=== PATIENT | female | born 1930 | race Caucasian/White ===

== ENCOUNTER 2016-09-07 14:40 | Emergency (ER) | payer OTHER, MEDICARE ==
--- NOTE | 2016-09-07 14:42 | PDOC ---
History of Present Illness - General History Source: Patient, Old Records, Primary Care Provider Exam Limitations: No Limitations - History of Present Illness Initial Comments: 09/07/16 14:49 The patient is a 86 year old female with a significant past medical history of AFIB, anemia, hypertension, hypercholesterolemia and rheumatoid arthritis who presents from [facility] emergency department today for further evaluation of diarrhea for 2 days. The patient went to her PMDs office today and was sent to the ED for further evaluation. The patient denies any nausea, vomiting, neck pain, back pain, and chest pain. The patient notes some shortness of breath when walking across the room. She notes she has an appointment with her shirt creaser tomorrow. PCP: Dr. Marquez [phone] <Kun New - Last Filed: 09/07/16 16:02> <Deniz Ly - Last Filed: 09/07/16 17:24> - General Chief Complaint: Weakness Stated Complaint: DEHYDRATION Time Seen by Provider: 09/07/16 14:41 Past History <Kun New - Last Filed: 09/07/16 16:02> - Past Medical History Anemia: Yes Asthma: No Cancer: No Cardiac Disorders: Yes (POSSIBLE A-FIB) CVA: No COPD: No CHF: No Dementia: No Diabetes: No GI Disorders: Yes (upper gi bleed 09) Disorders: No HTN: Yes Hypercholesterolemia: Yes Liver Disease: No Seizures: No Thyroid Disease: No - Surgical History Abdominal Surgery: No Appendectomy: Yes Cardiac Surgery: No Cholecystectomy: No Lung Surgery: No Neurologic Surgery: No Orthopedic Surgery: No - Immunization History Td Vaccination: Yes Immunization Up to Date: (THINKS 2 YEARS) - Psycho/Social/Smoking Cessation Hx Anxiety: No Suicidal Ideation: No Smoking Status: No Smoking History: Never smoked Have you smoked in the past 12 months: No Number of Cigarettes Smoked Daily: 0 If you are a former smoker, when did you quit?: 30 years ago 'Breaking Loose' booklet given: 11/26/11 Hx Alcohol Use: No Drug/Substance Use Hx: No Substance Use Type: None Hx Substance Use Treatment: No <Deniz Ly - Last Filed: 09/07/16 17:24> - Past Medical History Allergies/Adverse Reactions: Allergies Allergy/AdvReac Type Severity Reaction Status Date / Time No Known Allergies Allergy Verified 07/28/14 19:24 Home Medications: Ambulatory Orders Atenolol/Chlorthalidone [Tenoretic 100/25 Tablet] 1 each PO DAILY 10/25/13 Calcium (Oyster Shell) [Os-Subhash 500MG -] 500 mg PO DAILY 10/25/13 Cholecalciferol (Vitamin D3) [Vitamin D3] 5,000 unit PO DAILY 10/25/13 Folic Acid - 1 mg PO DAILY 10/25/13 Methotrexate [Mexate -] 20 mg PO Q7D 10/25/13 Pantoprazole Sodium [Protonix] 40 mg PO DAILY 10/25/13 Potassium Chloride [K-Dur] 20 meq PO BID 10/25/13 Simvastatin [Zocor -] 20 mg PO HS 10/25/13 Warfarin Na [Coumadin] 5 mg PO DAILY 10/25/13 Acetaminophen [Tylenol .Regular Strength -] 650 mg PO Q6H PRN #0 tablet Warfarin Na [Coumadin] 2.5 mg PO DAILY 07/28/14 Review of Systems - Review of Systems Able to Perform ROS?: Yes Constitutional: No: Fever, Loss of Appetite, Night Sweats Respiratory: Yes: Symptoms reported, See HPI, SOB with Exertion. No: Cough, Orthopnea, Wheezing, Productive cough Cardiac (ROS): No: Chest Pain, Syncope ABD/GI: Yes: Symptoms Reported, See HPI, Diarrhea. No: Nausea, Vomiting : No: Dysuria, Hematuria Musculoskeletal: No: Back Pain, Neck Pain Neurological: No: Headache Psychiatric: No: Depression Endocrine: No: Change in Weight All Other Systems: Reviewed and Negative <Kun New - Last Filed: 09/07/16 16:02> *Physical Exam - Physical Exam General Appearance: Yes: Appropriately Dressed. No: Intoxicated HEENT: positive: EOMI, TMII, Other (dry lips). negative: Photophobia, Rhinorrhea Neck: negative: Tender, Decreased range of motion, Lymphadenopathy (R), Lymphadenopathy (L) Respiratory/Chest: positive: Lungs Clear, Normal Breath Sounds. negative: Chest Tender, Respiratory Distress, Accessory Muscle Use, Decreased Breath Sounds, Crackles, Rales, Rhonchi, Stridor, Wheezing Cardiovascular: positive: Systolic Murmur (3/6 Ejection), Irregularly Irregular. negative: Edema, JVD, Diastolic Murmur Vascular Pulses: Femoral (R): 2+, Femoral (L): 2+, Carotid (R): 2+, Carotid (L) : 2+, Dorsalis-Pedis (R): 2+, Doralis-Pedis (L): 2+ Gastrointestinal/Abdominal: positive: Normal Bowel Sounds, Soft. negative: Tender, Increased Bowel Sounds, Decreased BS, Distended, Guarding, Rebound, Tenderness, Hernia, Mass Musculoskeletal: positive: Normal Inspection. negative: CVA Tenderness, Decreased Range of Motion Extremity: positive: Normal Capillary Refill, Normal Inspection, Normal Range of Motion, Swelling (bilateral lower etremity edema ). negative: Tender Integumentary: positive: Normal Color, Dry, Warm. negative: Cyanotic, Erythema , Jaundice Neurologic: positive: director perioperative II-XII NML intact, Fully Oriented, Alert, Normal Mood/ Affect, Normal Response, Motor Strength 5/5. negative: Abnormal Cranial NS, Facial Droop, Numbness, Disoriented <Kun New - Last Filed: 09/07/16 16:02> Heart Score/ECG Review - ECG Impressions Comment:: 09/07/16 15:48 TEST: ECG IMPRESSION: Vent Rate 120 bpm. Atrial fibillation with rapid vertricular response. Nonspecific ST and T wave abnormalities. Abnormal ECG. <Kun New - Last Filed: 09/07/16 16:02> ED Treatment Course - LABORATORY CBC & Chemistry Diagram: 09/07/16 15:00 09/07/16 15:00 - RADIOLOGY Radiograph Interpretation: 09/07/16 15:47 EXAM#: TYPE/EXAM: RESULT: [id number] RAD/CHEST X-RAY PORTABLE* Clinical history: Shortness of breath. COMPARISON: October 28, 2013. Rotated portable chest film shows cardiomegaly, unfolding of the aorta and biapical capping. There is no acute intrathoracic abnormality seen. No evidence of heart failure, acute infiltrate or pleural effusion is seen. IMPRESSION: Cardiomegaly. No acute intrathoracic abnormality seen. Reported By: Deniz Griffith MD 09/07/16 1534 <Kun New - Last Filed: 09/07/16 16:02> - LABORATORY CBC & Chemistry Diagram: 09/07/16 15:00 09/07/16 15:00 - ADDITIONAL ORDERS Additional order review: 09/07/16 17:21 Pt presents from PMD office with dehydration, weakness. After 1 litre of fluid, pt is feeling better Spoke with Dr. Jesus, will discharge home with mild dehydration Also pt was seen by Sports Announcer in ER, Dr. Francois for rapid a - fib, will see in office tomorrow Pt and family in agreement with plan Will discharge home with follow up <Deniz Ly - Last Filed: 09/07/16 17:24> *DC/Admit/Observation/Transfer - Attestations Scribe Attestion: 09/07/16 14:54 Documentation prepared by Kun New, acting as medical office supervisor for Deniz Ly MD. <Kun New - Last Filed: 09/07/16 16:02> - Discharge Dispostion Admit: No <Deniz Ly - Last Filed: 09/07/16 17:24> Diagnosis at time of Disposition: Dehydration, Atrial fibrillation with rapid ventricular response - Discharge Dispostion Disposition: HOME Condition at time of disposition: Good - Patient Instructions Printed Discharge Instructions: DI for Dehydration -- Adult, DI for Atrial Fibrillation Additional Instructions: Continue current treatment Fluids, rest Follow up with your Sports Announcer tomorrow, Dr. Francois If worsen return to ER
[2016-09-07] MEDS ORDERED: SODIUM CHLORIDE 1,000 ML IV SCH (15:00)
[2016-09-07 15:41] LABS: BASOPHIL 0.5 % (0-2.0); EOSINOPHIL 0.5 % (0-4.5); MCH 30.5 pg (25.7-33.7); MCHC 33.9 g/dl (32.0-36.0); MEAN PLT VOLUME 8.9 fl (7.5-11.1); NEUTROPHILS 78.7 % (42.8-82.8); PLATELET COUNT 302 K/MM3 (134-434); RDW 15.5 % (11.6-15.6); WHITE BLOOD COUNT 5.4 K/mm3 (4.0-10.8)
[2016-09-07 16:11] LABS: ALBUMIN 3.9 g/dl (3.5-5.0); ALK PHOS 58 U/L (32-92); ANION GAP 13 (8-16); BILIRUBIN,TOTAL 0.8 mg/dl (0.2-1.0); CALCIUM 9.6 mg/dl (8.4-10.2); CO2 22 mmol/L (22-28); CREATININE 1.4 mg/dl (0.6-1.3); GLUCOSE,RANDOM 109 mg/dl (74-106); SGOT/AST 19 U/L (10-42); SGPT/ALT 13 U/L (10-40); TOT PROT 6.6 g/dl (6.4-8.3)
[2016-09-07 16:58] VITALS: BP 119/63; PULSE 80; TEMP 98.6
--- NOTE | 2016-09-08 18:18 | EKG ---
Test Reason : Blood Pressure : / mmHG Vent. Rate : 120 BPM Atrial Rate : 340 BPM P-R Int : 000 ms QRS Dur : 074 ms QT Int : 270 ms P-R-T Axes : 000 029 -29 degrees QTc Int : 381 ms ATRIAL FIBRILLATION WITH RAPID VENTRICULAR RESPONSE NONSPECIFIC T WAVE ABNORMALITY WHEN COMPARED WITH ECG OF 29-NOV-2011 08:58, ATRIAL FIBRILLATION HAS REPLACED SINUS RHYTHM VENT. RATE HAS INCREASED BY 57 BPM NON-SPECIFIC CHANGE IN ST SEGMENT IN ANTERIOR LEADS NONSPECIFIC T WAVE ABNORMALITY NOW EVIDENT IN ANTEROLATERAL LEADS Confirmed by MD JAILENE, ROCK ([id number]) on 09/08/2016 6:17:48 PM Referred By: DR GARRETT Confirmed By:ROCK DENT MD
== END 2016-09-07 17:42 | disposition home or self-care (01) ==
LOC: FER 14:40
DX: I48.0 Paroxysmal atrial fibrillation (principal); E86.0 Dehydration; Z87.891 Personal history of nicotine dependence; I10 Essential (primary) hypertension; E78.00 Pure hypercholesterolemia, unspecified
CPT/HCPCS: 36415; 71010-TC; 80053; 84484; 85025; 93005; 99282-25

== ENCOUNTER 2016-11-14 09:46 | Inpatient (IN) | payer OTHER, MEDICARE ==
--- NOTE | 2016-11-14 10:28 | PDOC ---
Attending Attestation - Resident Resident Name: Court Turpin - ED Attending Attestation I have performed the following: I have examined & evaluated the patient, The case was reviewed & discussed with the resident, I agree w/resident's findings & plan, Exceptions are as noted - HPI HPI: 11/14/16 10:49 86y F hx of afib on coumadin, anemia, htn, hl, RA, presents s/p mechanical fall on sunday (4-5 days ago) and with complaint of swelling/pain to her L hip/ buttock with radiation of pain down the back of her leg that is worse when she is walking or lifting her leg. pt endorsed mild sob this morning but has since resolved. - Physicial Exam PE: GENERAL: The patient is awake, alert, and fully oriented, Nontoxic - in no acute distress. HEAD: Normocephalic, atraumatic. EYES: extraocular movements intact, sclera anicteric, conjunctiva clear. ENT: Normal voice, Moist mucous membranes. NECK: Normal range of motion, supple LUNGS: Breath sounds equal, clear to auscultation bilaterally. No wheezes, no rhonchi, no rales. HEART: Regular rate and rhythm, normal S1 and S2 without murmur, rub or gallop. ABDOMEN: Soft, nontender, normoactive bowel sounds. No guarding, no rebound. . No CVA tenderness EXTREMITIES: large hematoma on posterior L lower buttock with some ecchymosis, + tender to palpation andmildly fluctuant. NEUROLOGICAL: No facial assymetry, Normal speech, moving all 4 extremities spontaneously and symmetrically PSYCH: Normal mood, normal affect. SKIN: Warm, Dry, normal turgor, - Medical Decision Making suspect buttock hematoma with paplying pressure to sciatic nerve will obtain xrays to r/o hip fx will obtain blood work to r/o anemia, metabolic dernagement, supratherapeutic iNR levels 11/14/16 13:24 pts labs reviewed noted for INR of 6 pt also noted to be anemic, with a 2pt hgb drop from 2 months ago. suspect due to her hematoma xrays appear negative for fractures will admit the pt for repeat cbc will give pt dose of vitamin K PO will hold her coumadin will admit to hospitalist service stable for med surg Heart Score/ECG Review - ECG Impressions Comment:: 11/14/16 10:56 Twelve-lead EKG was performed and reviewed by me. There is normal sinus rhythm with a rate of 95 The axis is normal. The intervals are normal. No ST changes suggestive of acute ischemia
[2016-11-14] MEDS ORDERED: ACETAMINOPHEN 325 MG TABLET (FP) PO ONE (10:41)
--- NOTE | 2016-11-14 10:49 | PDOC ---
History of Present Illness - General Chief Complaint: Injury Stated Complaint: LEFT SIDE HIP PAIN Time Seen by Provider: 11/14/16 09:58 History Source: Patient Exam Limitations: No Limitations - History of Present Illness Initial Comments: This is an 86 yo female with h/o A-fib (on warfarin with INR 2.5 earlier this month) and recent UTI (completed antibiotic course) who presents with left hip pain s/p ground-level fall four days ago. The patient recalls that she was standing in the middle of the room on Sunday and trying to remove her shorts when her foot got caught on the shorts and she fell to her left, landing on the left hip and buttock. She denies any preceding dizziness or imbalance, did not hit her head or neck, and was able to pick herself up and walk around normally per her baseline immediately after the fall. She denies vision changes, speaking difficulties, new incontinence, confusion, mental fogginess, numbness, tingling, or focal weakness. She notes having stayed in bed for much of the past 4 days, but was generally functional and still able to walk throughout the weekend. Her neighbor came to visit her this morning when she had an acute worsening of the left hip/buttock pain. They tried to walk out to the neighbor' s car and the patient was not able to make it there, so the neighbor called 911 instead. The patient notes shortness of breath this morning, but otherwise no recent symptoms of illness. She lives alone in a home in town. Past History - Past Medical History Allergies/Adverse Reactions: Allergies Allergy/AdvReac Type Severity Reaction Status Date / Time No Known Allergies Allergy Verified 07/28/14 19:24 Home Medications: Ambulatory Orders Calcium (Oyster Shell) [Os-Subhash 500MG -] 500 mg PO DAILY 10/25/13 Cholecalciferol (Vitamin D3) [Vitamin D3] 5,000 unit PO DAILY 10/25/13 Folic Acid - 1 mg PO DAILY 10/25/13 Methotrexate [Mexate -] 20 mg PO Q7D 10/25/13 Pantoprazole Sodium [Protonix] 40 mg PO DAILY 10/25/13 Potassium Chloride [K-Dur] 20 meq PO BID 10/25/13 Simvastatin [Zocor -] 20 mg PO HS 10/25/13 Warfarin Na [Coumadin] 5 mg PO DAILY 08/09/14 Warfarin Na [Coumadin] 2.5 mg PO DAILY 07/28/14 Atenolol [Tenormin] 50 mg PO DAILY 11/14/16 Anemia: Yes Asthma: No Cancer: No Cardiac Disorders: Yes (POSSIBLE A-FIB) CVA: No COPD: No CHF: No Dementia: No Diabetes: No GI Disorders: Yes (upper gi bleed ) Disorders: No HTN: Yes Hypercholesterolemia: Yes Liver Disease: No Seizures: No Thyroid Disease: No - Surgical History Abdominal Surgery: No Appendectomy: Yes Cardiac Surgery: No Cholecystectomy: No Lung Surgery: No Neurologic Surgery: No Orthopedic Surgery: No - Immunization History Td Vaccination: Yes Immunization Up to Date: (THINKS 2 YEARS) - Psycho/Social/Smoking Cessation Hx Anxiety: No Suicidal Ideation: No Smoking Status: No Smoking History: Former smoker Have you smoked in the past 12 months: No Number of Cigarettes Smoked Daily: 0 If you are a former smoker, when did you quit?: 30 years ago Information on smoking cessation initiated: No 'Breaking Loose' booklet given: 11/26/11 Hx Alcohol Use: No Drug/Substance Use Hx: No Substance Use Type: None Hx Substance Use Treatment: No Review of Systems - Review of Systems Constitutional: No: Chills, Fever, Unexplained wgt Loss HEENTM: No: Nose Congestion, Throat Pain Respiratory: Yes: Shortness of Breath (this morning). No: Cough, Orthopnea, Wheezing Cardiac (ROS): No: Chest Pain, Palpitations, Syncope ABD/GI: No: Diarrhea, Nausea, Vomiting : No: Burning, Dysuria Musculoskeletal: Yes: Other (left hip pain, left buttock pain, left thigh pain) . No: Back Pain, Neck Pain Integumentary: No: Bruising, Rash Neurological: No: Headache, Numbness, Tingling, Weakness, Dizziness Endocrine: No: Unexplained Weight Gain, Unexplained Weight Loss *Physical Exam - Vital Signs Last Vital Signs Temp Pulse Resp BP Pulse Ox 98.9 F 90 20 146/65 100 11/14/16 09:47 11/14/16 09:47 11/14/16 09:47 11/14/16 09:47 11/14/16 09:47 - Physical Exam General Appearance: Yes: Nourished, Appropriately Dressed, Other (pleasant elderly woman laying on back in hospital bed, conversing appropriately and answering questions). No: Apparent Distress HEENT: positive: EOMI, Normal Voice, Hearing Grossly Normal, Other (no meier sign, no raccoon eyes, no scalp hematoma or tenderness). negative: Scleral Icterus (R), Scleral Icterus (L), Nasal Congestion Neck: positive: Trachea midline, Supple. negative: Tender, Rigid, Tender midline Respiratory/Chest: positive: Lungs Clear, Normal Breath Sounds. negative: Respiratory Distress, Crackles, Rhonchi, Stridor, Wheezing Cardiovascular: positive: Regular Rhythm, Tachycardia, Systolic Murmur (1/6). negative: Murmur Gastrointestinal/Abdominal: positive: Normal Bowel Sounds, Soft. negative: Tender, Organomegaly, Pulsatile Mass, Guarding Musculoskeletal: negative: CVA Tenderness, Vertebral Tenderness Extremity: positive: Normal Capillary Refill, Pelvis Stable, Swelling ( moderately sized ecchymosis to left lateral buttock (10x7cm), tenderness to left lateral buttock with milder tenderness to left proximal posterior thigh, minimal tenderness to left sacrum, pain on passive ROM of left hip especially with flexion motions). negative: Cyanosis Integumentary: positive: Normal Color, Dry, Warm. negative: Erythema, Rash, Bruising Neurologic: positive: station gateman II-XII NML intact, Fully Oriented, Alert, Normal Mood/ Affect, Normal Response, Motor Strength 5/5, Finger to Nose (normal). negative : EOM Palsy, Facial Droop, Sensory Deficit, Confused Heart Score/ECG Review #1 ECG reviewed & interpreted by me at: 10:00 Sinus tachycardia, rate or 107, normal axis and intervals, QTc 477 ED Treatment Course - LABORATORY CBC & Chemistry Diagram: 11/14/16 10:54 11/14/16 10:54 - RADIOLOGY Radiology Studies Ordered: Category Date Time Status CHEST X-RAY PORTABLE* [RAD] Stat Radiology 11/14/16 10:41 Ordered HIP & PELVIS-LEFT [RAD] Stat Radiology 11/14/16 10:41 Ordered 11/14/16 12:29 CXR without e/o acute cardiopulmonary processes. X-ray hip, pelvis, and femur with increased degenerative changes but no acute fracture/dislocation/deformity. Medical Decision Making - Medical Decision Making 86 yo female with a-fib on warfarin and recent antibiotic use for UTI presents 4 days s/p GLF. Now with increased left gluteal/hip pain radiating down back of left thigh. DDX includes hip contusion, sciatic nerve irritation, hip/thigh hematoma, less likely fracture/dislocation. Ordered are hip/pelvis/femur xray, CXR d/t SOB, CBCD, CMP, coags, UA. On lab work found to have INR >6, Hgb <10 which is below her prior baseline. LLE x-rays and CXR without acute changes. Given the supratherapeutic INR and new anemia, Pt will be admitted. Given the timeline (GLF was 4d ago) and the fact that the patient is stable, she is appropriate for Obs. Lor agrees with admission to Obs to Dr. Kamara. Dr. Marquez's office is called for update on the patient. *DC/Admit/Observation/Transfer Diagnosis at time of Disposition: Fall from ground level, Supratherapeutic INR Contusion Qualifiers: Encounter type: initial encounter Contusion area: hip Laterality: left Qualified Code(s): S70.02XA - Contusion of left hip, initial encounter Anemia Qualifiers: Anemia type: unspecified type Qualified Code(s): D64.9 - Anemia, unspecified - Discharge Dispostion Condition at time of disposition: Guarded Admit: Yes - Referrals Referrals: Cali Marquez MD [Primary Care Provider] -
[2016-11-14] MEDS ORDERED: SODIUM CHLORIDE 500 ML IV STA (10:59)
[2016-11-14] MEDS ORDERED: ACETAMINOPHEN 325 MG TABLET (FP) ONE (11:00)
[2016-11-14 11:02] LABS: PH,URINE 6.5 (4.5-8); URINE APPEARANCE Cloudy; URINE BILIRUBIN Negative (NEGATIVE); URINE BLOOD Trace-intact (NEGATIVE); URINE COLOR YELLOW; URINE GLUCOSE (UA) Negative (NEGATIVE); URINE KETONE Negative (NEGATIVE); URINE LEUK ESTERASE Negative (NEGATIVE); URINE NITRITE Negative (NEGATIVE); URINE PROTEIN Negative (NEGATIVE); URINE UROBILINOGEN 0.2 (0.2-1.0)
[2016-11-14 11:02] LABS: MCH 29.6 pg (25.7-33.7); MCHC 32.8 g/dl (32.0-36.0); MEAN CELL VOLUME 90.3 fl (80-96); MEAN PLT VOLUME 8.7 fl (7.5-11.1); PLATELET COUNT 234 K/MM3 (134-434); RDW 16.6 % (11.6-15.6); WHITE BLOOD COUNT 9.7 K/mm3 (4.0-10.8)
[2016-11-14 11:03] LABS: URINE BACTERIA FEW /hpf (NEGATIVE); URINE RBC 0-3 /hpf (0-3); URINE WBC 0-3 (3-5)
[2016-11-14 11:15] LABS: PROTHROMBIN TIME (PATIENT) 70.4 SEC (10.2-13.0)
[2016-11-14 11:17] LABS: INR 6.52 (0.82-1.09)
[2016-11-14 11:40] LABS: ALBUMIN 3.6 g/dl (3.5-5.0); ALK PHOS 54 U/L (32-92); BILIRUBIN,TOTAL 0.5 mg/dl (0.2-1.0); CREATININE 1.1 mg/dl (0.6-1.3); SGOT/AST 23 U/L (10-42); SGPT/ALT 10 U/L (10-40); TOT PROT 6.2 g/dl (6.4-8.3)
[2016-11-14 11:43] LABS: ANION GAP 7 (8-16); CALCIUM 8.6 mg/dl (8.4-10.2); CO2 21 mmol/L (22-28); GLUCOSE,RANDOM 122 mg/dl (74-106)
[2016-11-14 11:48] LABS: PLATELET ESTIMATE ADEQUATE (NORMAL)
[2016-11-14 11:50] LABS: BASOPHIL (MANUAL) 3 % (0-2.0)
--- NOTE | 2016-11-14 13:51 | HP ---
CHIEF COMPLAINT: PCP: Dr Marquez Resident Medical Officer: Dr Conrad HISTORY OF PRESENT ILLNESS: Patient is a 86 y/o female with a past medical history of afib (coumadin), RA, and upper GI bleed. Patient reports on October she was attempting to dress herself, tripped and fell upon her left buttock. Patient denies striking her head and is able to recall the full incident in detail. She reports ongoing pain to the left hip that worsens upon bearing weight onto the left lower extremity. She reports finishing a 7 day of course of antibiotic (pt is unable to recall the name) for a urinary tract infection 2 weeks ago. ER course was notable for: (1) xray of hip/pelvis intact right hip replacement, no acute fracture or subluxation (2)inr 6.5 (3)hgb 9.6 Recent Travel: none PAST MEDICAL HISTORY: afib (coumadin), RA, upper GI Bleed PAST SURGICAL HISTORY: right hip replacement Social History: resides at home alone Smoking:none Alcohol:none Drugs: none Family History: noncontributory Allergies No Known Allergies Allergy (Verified 07/28/14 19:24) HOME MEDICATIONS: Home Medications Medication Instructions Recorded Calcium (Oyster Shell) [Os-Subhash 500 mg PO DAILY 10/25/13 500MG -] Cholecalciferol (Vitamin D3) 5,000 unit PO DAILY 10/25/13 [Vitamin D3] Folic Acid - 1 mg PO DAILY 10/25/13 Methotrexate [Mexate -] 20 mg PO Q7D 10/25/13 Pantoprazole Sodium [Protonix] 40 mg PO DAILY 10/25/13 Potassium Chloride [K-Dur] 20 meq PO BID 10/25/13 Simvastatin [Zocor -] 20 mg PO HS 10/25/13 Warfarin Na [Coumadin] 5 mg PO DAILY 10/25/13 Warfarin Na [Coumadin] 2.5 mg PO DAILY 07/28/14 Atenolol [Tenormin] 50 mg PO DAILY 11/14/16 REVIEW OF SYSTEMS CONSTITUTIONAL: Absent: fever, chills, diaphoresis, generalized weakness, malaise, loss of appetite, weight change HEENT: Absent: rhinorrhea, nasal congestion, throat pain, throat swelling, difficulty swallowing, mouth swelling, ear pain, eye pain, visual changes CARDIOVASCULAR: Absent: chest pain, syncope, palpitations, irregular heart rate, lightheadedness , peripheral edema RESPIRATORY: Absent: cough, shortness of breath, dyspnea with exertion, orthopnea, wheezing, stridor, hemoptysis GASTROINTESTINAL: Absent: abdominal pain, abdominal distension, nausea, vomiting, diarrhea, constipation, melena, hematochezia GENITOURINARY: Absent: dysuria, frequency, urgency, hesitancy, hematuria, flank pain, genital pain MUSCULOSKELETAL: present: left hip pain Absent: myalgia, arthralgia, joint swelling, back pain, neck pain SKIN: Absent: rash, itching, pallor HEMATOLOGIC/IMMUNOLOGIC: Absent: easy bleeding, easy bruising, lymphadenopathy, frequent infections ENDOCRINE: Absent: unexplained weight gain, unexplained weight loss, heat intolerance, cold intolerance NEUROLOGIC: Absent: headache, focal weakness or paresthesias, dizziness, unsteady gait, seizure, mental status changes, bladder or bowel incontinence PSYCHIATRIC: Absent: anxiety, depression, suicidal or homicidal ideation, hallucinations. PHYSICAL EXAMINATION GENERAL: Awake, alert, and fully oriented, in no acute distress. HEAD: Normal with no signs of trauma. EYES: Pupils equal, round and reactive to light, extraocular movements intact, sclera anicteric, conjunctiva clear. No lid lag. EARS, NOSE, THROAT: Ears normal, nares patent, oropharynx clear without exudates. Moist mucous membranes. NECK: Normal range of motion, supple without lymphadenopathy, JVD, or masses. LUNGS: Breath sounds equal, clear to auscultation bilaterally. No wheezes, and no crackles. No accessory muscle use. HEART: irregular rate and rhythm, normal S1 and S2 without murmur, rub or gallop. ABDOMEN: Soft, nontender, not distended, normoactive bowel sounds, no guarding, no rebound, no masses. No hepatomegaly or splenomegaly. MUSCULOSKELETAL: Normal range of motion at all joints. No bony deformities or tenderness. No CVA tenderness. UPPER EXTREMITIES: 2+ pulses, warm, well-perfused. No cyanosis. No clubbing. No peripheral edema. LOWER EXTREMITIES: 2+ pulses, warm, well-perfused. No calf tenderness. No peripheral edema. hematoma noted to the left lateral buttock with point tenderness, unable to bear weight to the left lower extremity. NEUROLOGICAL: Cranial nerves II-XII intact. Normal speech. Normal gait. PSYCHIATRIC: Cooperative. Good eye contact. Appropriate mood and affect. SKIN: Warm, dry, normal turgor, no rashes or lesions noted, normal capillary refill. ASSESSMENT/PLAN: F/E/N - low sodium diet - replete lytes prn ppx - oob - pt eval - scd - protonix full code dispo: requires obsv admission Problem List - Problem (1) Supratherapeutic INR Assessment/Plan: - inr 6.5, hold coumadin - repeat inr in the am Code(s): R79.1 - ABNORMAL COAGULATION PROFILE (2) Normocytic anemia Assessment/Plan: - hgb 9.6 baseline 12.6, repeat hgb at 1800 - pending stool guiac Code(s): D64.9 - ANEMIA, UNSPECIFIED (3) Atrial fibrillation Assessment/Plan: - rate controlled continue atenolol - pt on coumadin subtherepeutic inr Code(s): I48.91 - UNSPECIFIED ATRIAL FIBRILLATION Qualifiers: Atrial fibrillation type: chronic Qualified Code(s): I48.2 - Chronic atrial fibrillation (4) GERD (gastroesophageal reflux disease) Assessment/Plan: - continue protonix Code(s): K21.9 - GASTRO-ESOPHAGEAL REFLUX DISEASE WITHOUT ESOPHAGITIS (5) Hip pain, left Assessment/Plan: - xrays reviewed, ongoing pain noted, ct of hip ordered - tylenol #3 prn for pain Code(s): M25.552 - PAIN IN LEFT HIP Visit type - Emergency Visit Emergency Visit: Yes ED Registration Date: 11/14/16 Care time: The patient presented to the Emergency Department on the above date and was hospitalized for further evaluation of their emergent condition. - New Patient This patient is new to me today: Yes Date on this admission: 11/14/16 - Critical Care Critical Care patient: No
[2016-11-14] MEDS ORDERED: ACETAMINOPHEN 325 MG TABLET (FP) PO PRN (14:21)
[2016-11-14 14:24] VITALS: BMI 29.9
[2016-11-14 18:18] LABS: BASOPHIL 1.6 % (0-2.0); EOSINOPHIL 0.3 % (0-4.5); MCH 30.9 pg (25.7-33.7); MCHC 34.3 g/dl (32.0-36.0); MEAN PLT VOLUME 7.7 fl (7.5-11.1); NEUTROPHILS 77.1 % (42.8-82.8); PLATELET COUNT 205 K/MM3 (134-434); RDW 16.9 % (11.6-15.6); WHITE BLOOD COUNT 7.5 K/mm3 (4.0-10.8)
--- NOTE | 2016-11-14 19:20 | EKG ---
Test Reason : Blood Pressure : / mmHG Vent. Rate : 095 BPM Atrial Rate : 095 BPM P-R Int : 138 ms QRS Dur : 078 ms QT Int : 370 ms P-R-T Axes : 068 044 064 degrees QTc Int : 464 ms BASELINE ARTIFACTS. SINUS RHYTHM WITH RARE PREMATURE SUPRAVENTRICULAR COMPLEXES OTHERWISE NORMAL ECG WHEN COMPARED WITH ECG OF 07-SEP-2016 15:40, SINUS RHYTHM HAS REPLACED ATRIAL FIBRILLATION CLINICAL CORRELATION IS RECOMMENDED Confirmed by ELEANOR MELCHOR MD ([id number]) on 11/14/2016 7:20:27 PM Referred By: BENJA BUSH Confirmed By:ELEANOR MELCHOR MD
[2016-11-14] MEDS: POTASSIUM CHLORIDE TABS 20 MEQ TABLET.ER (FP) PO SCH (21:27)
[2016-11-14] MEDS: ATORVASTATIN CA 10 MG TABLET (FP) PO SCH (21:27)
[2016-11-14] MEDS: ACETAMINOPHEN WITH CODEINE 300MG/30MG TABLET PO PRN (21:27)
[2016-11-14] MEDS ORDERED: PATIENT'S OWN MEDICATION (NON-FORMULARY) (Simvastatin 20 MG) PO SCH (22:00)
[2016-11-14 23:23] LABS: BASOPHIL 0.4 % (0-2.0); EOSINOPHIL 0.7 % (0-4.5); MCH 30.9 pg (25.7-33.7); MCHC 34.3 g/dl (32.0-36.0); MEAN CELL VOLUME 90.1 fl (80-96); MEAN PLT VOLUME 8.1 fl (7.5-11.1); NEUTROPHILS 79.1 % (42.8-82.8); PLATELET COUNT 204 K/MM3 (134-434); RDW 16.6 % (11.6-15.6); WHITE BLOOD COUNT 6.6 K/mm3 (4.0-10.8)
[2016-11-14] MEDS ORDERED: PHYTONADIONE 5 MG TABLET PO ONE (23:55)
[2016-11-15] MEDS: ACETAMINOPHEN WITH CODEINE 300MG/30MG TABLET PO PRN (04:32)
--- NOTE | 2016-11-15 07:57 | PN ---
Physical Exam: SUBJECTIVE: Patient seen and examined, reports pain pain to left buttock radiating downward to left leg, denies any chest pain, dizziness or shortness of breath. OBJECTIVE:Patient is a 86 y/o female with a past medical history of afib ( coumadin), RA, and upper GI bleed. Patient was admitted from the emergency department for subtherepeutic INR and normocytic anemia. Vital Signs Period Temp Pulse Resp BP Sys/Alonso Pulse Ox Last 24 Hr 98.5 F-98.6 F 78-105 16-20 133-140/55-61 97-100 GENERAL: Awake, alert, and fully oriented, in no acute distress. HEAD: Normal with no signs of trauma. EYES: Pupils equal, round and reactive to light, extraocular movements intact, sclera anicteric, conjunctiva clear. No lid lag. EARS, NOSE, THROAT: Ears normal, nares patent, oropharynx clear without exudates. Moist mucous membranes. NECK: Normal range of motion, supple without lymphadenopathy, JVD, or masses. LUNGS: Breath sounds equal, clear to auscultation bilaterally. No wheezes, and no crackles. No accessory muscle use. HEART: irregular rate and rhythm, normal S1 and S2, 3/6 systolic murmur, rub or gallop. ABDOMEN: Soft, nontender, not distended, normoactive bowel sounds, no guarding, no rebound, no masses. No hepatomegaly or splenomegaly. RECTAL: normal spincther, stool guiac negative MUSCULOSKELETAL: Normal range of motion at all joints. No bony deformities or tenderness. No CVA tenderness. UPPER EXTREMITIES: 2+ pulses, warm, well-perfused. No cyanosis. No clubbing. No peripheral edema. LOWER EXTREMITIES: 2+ pulses, warm, well-perfused. No calf tenderness. No peripheral edema. hematoma noted to the left lateral buttock with point tenderness. NEUROLOGICAL: Cranial nerves II-XII intact. Normal speech. Normal gait. PSYCHIATRIC: Cooperative. Good eye contact. Appropriate mood and affect. SKIN: Warm, dry, normal turgor, no rashes or lesions noted, normal capillary refill. Laboratory Results - last 24 hr CBC WBC 7.7 K/mm3 (4.0-10.8) 11/15/16 07:00 RBC 2.56 M/mm3 (3.60-5.2) L 11/15/16 07:00 Hgb 7.9 GM/dl (10.7-15.3) L 11/15/16 07:00 Hct 22.8 % (32.4-45.2) L 11/15/16 07:00 MCV 88.8 fl (80-96) 11/15/16 07:00 MCH 30.8 pg (25.7-33.7) 11/15/16 07:00 MCHC 34.7 g/dl (32.0-36.0) 11/15/16 07:00 RDW 16.7 % (11.6-15.6) H 11/15/16 07:00 Plt Count 205 K/MM3 (134-434) 11/15/16 07:00 MPV 7.7 fl (7.5-11.1) 11/15/16 07:00 Neutrophils % 82.9 % (42.8-82.8) H 11/15/16 07:00 Neutrophils % (Manual) 84 % (42.8-82.8) H 11/14/16 10:54 Band Neuts % (Manual) 2 % (0-10) 11/14/16 10:54 Lymphocytes % 7.7 % (8-40) L D 11/15/16 07:00 Lymphocytes % (Manual) 5 % (8-40) L 11/14/16 10:54 Monocytes % 8.5 % (3.8-10.2) 11/15/16 07:00 Monocytes % (Manual) 6 % (3.8-10.2) 11/14/16 10:54 Eosinophils % 0.5 % (0-4.5) 11/15/16 07:00 Basophils % 0.4 % (0-2.0) 11/15/16 07:00 Basophils % (Manual) 3 % (0-2.0) H 11/14/16 10:54 Platelet Estimate Adequate (NORMAL) 11/14/16 10:54 CMP Sodium 137 mmol/L (136-145) 11/15/16 07:00 Potassium 3.8 mmol/L (3.5-5.1) 11/15/16 07:00 Chloride 105 mmol/L (98-107) 11/15/16 07:00 Carbon Dioxide 26 mmol/L (22-28) D 11/15/16 07:00 Anion Gap 6 (8-16) L 11/15/16 07:00 BUN 19 mg/dl (7-18) H 11/15/16 07:00 Creatinine 1.0 mg/dl (0.6-1.3) 11/15/16 07:00 Creat Clearance w eGFR 46.88 (>60) 11/14/16 10:54 Random Glucose 124 mg/dl (74-106) H 11/15/16 07:00 Calcium 8.4 mg/dl (8.4-10.2) 11/15/16 07:00 Phosphorus 2.9 mg/dl (2.5-4.6) 11/15/16 07:00 Magnesium 1.9 mg/dL (1.8-2.4) 11/15/16 07:00 Total Bilirubin 0.5 mg/dl (0.2-1.0) D 11/14/16 10:54 AST 23 U/L (10-42) D 11/14/16 10:54 ALT 10 U/L (10-40) D 11/14/16 10:54 Alkaline Phosphatase 54 U/L (32-92) 11/14/16 10:54 Total Protein 6.2 g/dl (6.4-8.3) L 11/14/16 10:54 Albumin 3.6 g/dl (3.5-5.0) 11/14/16 10:54 Laboratory Tests 11/15/16 11/15/16 07:00 08:43 INR 4.53 H* D Stool Occult Blood Negative Active Medications Generic Name Dose Route Start Last Admin Trade Name Freq PRN Reason Stop Dose Admin Acetaminophen 650 mg 11/14/16 14:21 Tylenol - PO Q4H PRN FEVER OR PAIN Acetaminophen/Codeine Phosphate 1 tab 11/14/16 14:21 11/15/16 04:32 Tylenol # 3 - PO 1 tab Q6H PRN Administration FEVER OR PAIN Atenolol 50 mg 11/15/16 10:00 Tenormin - PO DAILY ESTRELLA Atorvastatin Calcium 10 mg 11/14/16 22:00 11/14/16 21:27 Lipitor - PO 10 mg HS ESTRELLA Administration Calcium Carbonate 500 mg 11/15/16 10:00 Os-Subhash 500mg - PO DAILY ESTRELLA Cholecalciferol 5,000 unit 11/15/16 10:00 Vitamin D3 - PO DAILY [facility] Folic Acid 1 mg 11/15/16 10:00 Folic Acid - PO DAILY ESTRELLA Pantoprazole Sodium 40 mg 11/15/16 10:00 Protonix - PO DAILY ESTRELLA Potassium Chloride 20 meq 11/14/16 22:00 11/14/16 21:27 K-Dur - PO 20 meq BID ESTRELLA Administration Microbiology 11/14/16 10:54 Urine - Urine Clean Catch Urine Culture - Preliminary Staphylococcus Coagulase Neg ASSESSMENT/PLAN: 1) supratherapeutic inr - repeat inr this AM 4.53, vitamin k 5mg given last PM - continue to hold coumadin, repeat inr in am 2) normocytic anemia - repeat hgb 7.9, iron studies pending - stool guiac noted, repeat cbc at 1400, will transfuse if less than 7 3) atrial fibrillation - remains rate controlled continue atenolol - pt on coumadin with supratherepeutic inr 4) gerd - continue protonix - GI, Dr Garcia consulted and followed 5) left hip pain, s/p fall - ct of hip no acute fracture noted - pt reports inadequate pain relief will change to ultram - pt eval able to ambulate with the assistance of a rolling walker and 1 person f/e/n - low sodium diet - replete lytes prn ppx - pt - oob - protonix dispo: requires inpatient admission Problem List - Problems (1) Supratherapeutic INR Code(s): R79.1 - ABNORMAL COAGULATION PROFILE (2) Normocytic anemia Code(s): D64.9 - ANEMIA, UNSPECIFIED (3) Atrial fibrillation Code(s): I48.91 - UNSPECIFIED ATRIAL FIBRILLATION Qualifiers: Atrial fibrillation type: chronic Qualified Code(s): I48.2 - Chronic atrial fibrillation (4) GERD (gastroesophageal reflux disease) Code(s): K21.9 - GASTRO-ESOPHAGEAL REFLUX DISEASE WITHOUT ESOPHAGITIS (5) Hip pain, left Code(s): M25.552 - PAIN IN LEFT HIP Visit type - Emergency Visit Emergency Visit: Yes ED Registration Date: 11/15/16 Care time: The patient presented to the Emergency Department on the above date and was hospitalized for further evaluation of their emergent condition. - New Patient This patient is new to me today: No - Critical Care Critical Care patient: No - Discharge Referral Referred to [facility] No
[2016-11-15 08:16] LABS: BASOPHIL 0.4 % (0-2.0); EOSINOPHIL 0.5 % (0-4.5); MCH 30.8 pg (25.7-33.7); MCHC 34.7 g/dl (32.0-36.0); MEAN CELL VOLUME 88.8 fl (80-96); MEAN PLT VOLUME 7.7 fl (7.5-11.1); NEUTROPHILS 82.9 % (42.8-82.8); PLATELET COUNT 205 K/MM3 (134-434); RDW 16.7 % (11.6-15.6); WHITE BLOOD COUNT 7.7 K/mm3 (4.0-10.8)
[2016-11-15 08:25] LABS: PROTHROMBIN TIME (PATIENT) 49.3 SEC (10.2-13.0)
[2016-11-15 08:27] LABS: INR 4.53 (0.82-1.09)
[2016-11-15 08:29] LABS: ANION GAP 6 (8-16); CALCIUM 8.4 mg/dl (8.4-10.2); CO2 26 mmol/L (22-28); GLUCOSE,RANDOM 124 mg/dl (74-106); MAGNESIUM 1.9 mg/dL (1.8-2.4); PHOSPHOROUS 2.9 mg/dl (2.5-4.6)
[2016-11-15] MEDS ORDERED: morphine CARPU-JECT 2 MG/1 ML DISP.SYRIN IVPUSH ONE (09:20)
--- NOTE | 2016-11-15 09:45 | PN ---
Progress Note (short form) - Note Progress Note: Patient seen and chart reviewed. Full consult dictated. Patient seen for drop in Hct in setting of Coumadin toxicity (INR>6). Has hx of mild peptic disease in past (small ulcerations seen on EGD in stomach in 2008). No melena or BRBPR. Denies abdominal pain, cramps, nausea. Has hx of diverticulosis on colonsocopy (2008) Stool guaiac negative. Has large hematoma on left leg/thigh (associated with pain) - likely etiology of anemia/drop in Hct. No evidence of acute GI bleed at this time. Will follow as needed.
[2016-11-15] MEDS: CHOLECALCIFEROL (VITAMIN D3) 1,000 UNIT TABLET (FP) PO SCH (09:54)
[2016-11-15] MEDS: POTASSIUM CHLORIDE TABS 20 MEQ TABLET.ER (FP) PO SCH ×2 (09:54→21:23)
[2016-11-15] MEDS: FOLIC ACID 1 MG TABLET (FP) PO SCH (09:54)
[2016-11-15] MEDS: ATENOLOL 50 MG TABLET (FP) PO SCH (09:54)
[2016-11-15] MEDS: CALCIUM (OYSTER SHELL) 500 MG TABLET (FP) PO SCH (09:54)
[2016-11-15] MEDS: PANTOPRAZOLE 40 MG TABLET (FP) PO SCH (09:54)
--- NOTE | 2016-11-15 10:29 | CONS ---
DATE OF CONSULTATION: 11/15/2016 REASON FOR CONSULTATION: I was asked to evaluate this 86-year-old female with a drop in hematocrit. HISTORY OF PRESENT ILLNESS: Patient is an 86-year-old female known to me from previous. In 2008, she underwent both upper endoscopy and colonoscopy, with the upper endoscopy showing some gastric erosions and inflammation, and the colonoscopy showed diverticulosis. She has been doing well on antacids on a regular basis. She does have a history of chronic atrial fibrillation and has been on Coumadin. She also has rheumatoid arthritis. The patient apparently had a fall prior to admission and associated left hip pain for which she went to the emergency room. She was found in the emergency room to have an INR of 6.5 and initial hemoglobin of 9.6. Her hemoglobin has dropped to 7.9 at the present time with a hematocrit of 22.8% and MCV of 88.8 (normocytic indices). She denies seeing any black or tarry stool and has had brown stools regularly. She denies any nausea, vomiting, or abdominal pain. She has been taking Protonix on a daily basis. PHYSICAL EXAMINATION: General: The patient is a well-developed, elderly female with slightly pale conjunctiva, no icterus. Lungs: Clear. Heart: She has atrial fibrillation. Abdomen: Soft, flat, and nontender. The stool is guaiac negative . IMPRESSION: Patient with drop in hematocrit most likely due to the fall with supratherapeutic international normalized ratio and an ecchymotic area in the left hip and lower leg/thigh. There is no evidence of gastrointestinal bleeding at the present time with guaiac negative stool. I agree with management plan as outlined by primary care doctor and nurse practitioner and would defer any GI workup at the present time. Will follow as needed. ALFRED GARZA M.D. [id number]
[2016-11-15] MEDS: ATORVASTATIN CA 10 MG TABLET (FP) PO SCH (21:22)
[2016-11-16 08:24] LABS: INR 1.27 (0.82-1.09); PROTHROMBIN TIME (PATIENT) 14.1 SEC (10.2-13.0)
[2016-11-16 08:30] LABS: ANION GAP 6 (8-16); CALCIUM 8.6 mg/dl (8.4-10.2); CO2 26 mmol/L (22-28); GLUCOSE,RANDOM 122 mg/dl (74-106); MAGNESIUM 1.9 mg/dL (1.8-2.4); PHOSPHOROUS 3.3 mg/dl (2.5-4.6)
--- NOTE | 2016-11-16 08:34 | PN ---
Physical Exam: SUBJECTIVE: Patient seen and examined, reports feeling tired, reports an improvement of pain to the left lower extremity OBJECTIVE:Patient is a 86 y/o female with a past medical history of afib ( coumadin), RA, and upper GI bleed. Patient was admitted from the emergency department for subtherepeutic INR and normocytic anemia. Vital Signs Period Temp Pulse Resp BP Sys/Alonso Pulse Ox Last 24 Hr 98.4 F-99.9 F 85-104 18-20 119-122/44-63 94-97 GENERAL: Awake, alert, and fully oriented, in no acute distress. HEAD: Normal with no signs of trauma. EYES: Pupils equal, round and reactive to light, extraocular movements intact, sclera anicteric, conjunctiva clear. No lid lag. EARS, NOSE, THROAT: Ears normal, nares patent, oropharynx clear without exudates. Moist mucous membranes. NECK: Normal range of motion, supple without lymphadenopathy, JVD, or masses. LUNGS: Breath sounds equal, clear to auscultation bilaterally. No wheezes, and no crackles. No accessory muscle use. HEART: irregular rate and rhythm, normal S1 and S2, 3/6 systolic murmur, rub or gallop. ABDOMEN: Soft, nontender, not distended, normoactive bowel sounds, no guarding, no rebound, no masses. No hepatomegaly or splenomegaly. RECTAL: normal spincther, stool guiac negative MUSCULOSKELETAL: Normal range of motion at all joints. No bony deformities or tenderness. No CVA tenderness. UPPER EXTREMITIES: 2+ pulses, warm, well-perfused. No cyanosis. No clubbing. No peripheral edema. LOWER EXTREMITIES: 2+ pulses, warm, well-perfused. No calf tenderness. No peripheral edema. hematoma noted to the left lateral buttock with point tenderness. NEUROLOGICAL: Cranial nerves II-XII intact. Normal speech. Normal gait. PSYCHIATRIC: Cooperative. Good eye contact. Appropriate mood and affect. SKIN: Warm, dry, normal turgor, no rashes or lesions noted, normal capillary refill. Laboratory Results - last 24 hr 11/16/16 07:45 INR 1.27 H D CBC WBC 9.7 K/mm3 (4.0-10.8) 11/16/16 07:45 RBC 2.42 M/mm3 (3.60-5.2) L 11/16/16 07:45 Hgb 7.1 GM/dl (10.7-15.3) L D 11/16/16 07:45 Hct 22.1 % (32.4-45.2) L 11/16/16 07:45 MCV 91.1 fl (80-96) 11/16/16 07:45 MCH 29.4 pg (25.7-33.7) 11/16/16 07:45 MCHC 32.2 g/dl (32.0-36.0) 11/16/16 07:45 RDW 16.8 % (11.6-15.6) H 11/16/16 07:45 Plt Count 238 K/MM3 (134-434) 11/16/16 07:45 MPV 8.1 fl (7.5-11.1) 11/16/16 07:45 Neutrophils % 84.5 % (42.8-82.8) H 11/16/16 07:45 Neutrophils % (Manual) 84 % (42.8-82.8) H 11/14/16 10:54 Band Neuts % (Manual) 2 % (0-10) 11/14/16 10:54 Lymphocytes % 7.9 % (8-40) L 11/16/16 07:45 Lymphocytes % (Manual) 5 % (8-40) L 11/14/16 10:54 Monocytes % 6.8 % (3.8-10.2) 11/16/16 07:45 Monocytes % (Manual) 6 % (3.8-10.2) 11/14/16 10:54 Eosinophils % 0.5 % (0-4.5) 11/16/16 07:45 Basophils % 0.3 % (0-2.0) 11/16/16 07:45 Basophils % (Manual) 3 % (0-2.0) H 11/14/16 10:54 Platelet Estimate Adequate (NORMAL) 11/14/16 10:54 CMP Sodium 137 mmol/L (136-145) 11/16/16 07:45 Potassium 4.4 mmol/L (3.5-5.1) 11/16/16 07:45 Chloride 105 mmol/L (98-107) 11/16/16 07:45 Carbon Dioxide 26 mmol/L (22-28) 11/16/16 07:45 Anion Gap 6 (8-16) L 11/16/16 07:45 BUN 19 mg/dl (7-18) H 11/16/16 07:45 Creatinine 1.0 mg/dl (0.6-1.3) 11/16/16 07:45 Creat Clearance w eGFR 46.88 (>60) 11/14/16 10:54 Random Glucose 122 mg/dl (74-106) H 11/16/16 07:45 Calcium 8.6 mg/dl (8.4-10.2) 11/16/16 07:45 Phosphorus 3.3 mg/dl (2.5-4.6) 11/16/16 07:45 Magnesium 1.9 mg/dL (1.8-2.4) 11/16/16 07:45 Ferritin 46.760 ng/ml (6.9-282.5) 11/15/16 07:00 Total Bilirubin 0.5 mg/dl (0.2-1.0) D 11/14/16 10:54 AST 23 U/L (10-42) D 11/14/16 10:54 ALT 10 U/L (10-40) D 11/14/16 10:54 Alkaline Phosphatase 54 U/L (32-92) 11/14/16 10:54 Total Protein 6.2 g/dl (6.4-8.3) L 11/14/16 10:54 Albumin 3.6 g/dl (3.5-5.0) 11/14/16 10:54 Laboratory Tests 11/16/16 07:45 INR 1.27 H D Active Medications Generic Name Dose Route Start Last Admin Trade Name Freq PRN Reason Stop Dose Admin Acetaminophen 650 mg 11/14/16 14:21 Tylenol - PO Q4H PRN FEVER OR PAIN Atenolol 50 mg 11/15/16 10:00 11/15/16 09:54 Tenormin - PO 50 mg DAILY ESTRELLA Administration Atorvastatin Calcium 10 mg 11/14/16 22:00 11/15/16 21:22 Lipitor - PO 10 mg HS ESTRELLA Administration Calcium Carbonate 500 mg 11/15/16 10:00 11/15/16 09:54 Os-Subhash 500mg - PO 500 mg DAILY ESTRELLA Administration Cholecalciferol 5,000 unit 11/15/16 10:00 11/15/16 09:54 Vitamin D3 - PO 5,000 unit DAILY ESTRELLA Administration Folic Acid 1 mg 11/15/16 10:00 11/15/16 09:54 Folic Acid - PO 1 mg DAILY ESTRELLA Administration Pantoprazole Sodium 40 mg 11/15/16 10:00 11/15/16 09:54 Protonix - PO 40 mg DAILY ESTRELLA Administration Potassium Chloride 20 meq 11/14/16 22:00 11/15/16 21:23 K-Dur - PO 20 meq BID ESTRELLA Administration Tramadol HCl 50 mg 11/15/16 11:43 Ultram - PO Q6H PRN PAIN Microbiology 11/14/16 10:54 Urine - Urine Clean Catch Urine Culture - Final Staphylococcus Epidermidis IMAGING ct of hip no acute fracture noted ASSESSMENT/PLAN: 1) supratherapeutic inr - repeat inr this AM 1.2, vitamin k 5mg (11/14) - continue to hold coumadin secondary to anemia repeat inr in am 2) normocytic anemia - repeat hgb 7.1, iron studies pending - 2 units of PRBC ordered, noted, repeat cbc at 1400, will transfuse if less than 7 3) atrial fibrillation - remains rate controlled continue atenolol - echo (09/02) reviewed copies of medical record obtained from Dr Conrad, 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 senior electrical controls engineer, EF 60%, lv wnl, moderate/severe - pt on coumadin - 4) gerd - continue protonix - GI, Dr Garcia consulted and followed 5) left hip pain, s/p fall - pt reports adequate pain from o ultram - pt eval able to ambulate with the assistance of a rolling walker and 1 person with limited endurance, case discussed with patient and social media content specialist pt agrees to SNF for short term rehab f/e/n - low sodium diet - replete lytes prn ppx - pt - oob - protonix dispo: requires inpatient admission transfer to SNF once hgb is stable Problem List - Problems (1) Supratherapeutic INR Code(s): R79.1 - ABNORMAL COAGULATION PROFILE (2) Normocytic anemia Code(s): D64.9 - ANEMIA, UNSPECIFIED (3) Atrial fibrillation Code(s): I48.91 - UNSPECIFIED ATRIAL FIBRILLATION Qualifiers: Atrial fibrillation type: chronic Qualified Code(s): I48.2 - Chronic atrial fibrillation (4) GERD (gastroesophageal reflux disease) Code(s): K21.9 - GASTRO-ESOPHAGEAL REFLUX DISEASE WITHOUT ESOPHAGITIS (5) Hip pain, left Code(s): M25.552 - PAIN IN LEFT HIP Visit type - Emergency Visit Emergency Visit: Yes ED Registration Date: 11/15/16 Care time: The patient presented to the Emergency Department on the above date and was hospitalized for further evaluation of their emergent condition. - New Patient This patient is new to me today: No - Critical Care Critical Care patient: No - Discharge Referral Referred to [facility] No
[2016-11-16 08:40] LABS: BASOPHIL 0.3 % (0-2.0); EOSINOPHIL 0.5 % (0-4.5); MCH 29.4 pg (25.7-33.7); MCHC 32.2 g/dl (32.0-36.0); MEAN CELL VOLUME 91.1 fl (80-96); MEAN PLT VOLUME 8.1 fl (7.5-11.1); NEUTROPHILS 84.5 % (42.8-82.8); PLATELET COUNT 238 K/MM3 (134-434); RDW 16.8 % (11.6-15.6); WHITE BLOOD COUNT 9.7 K/mm3 (4.0-10.8)
[2016-11-16] MEDS: FOLIC ACID 1 MG TABLET (FP) PO SCH (09:45)
[2016-11-16] MEDS: ATENOLOL 50 MG TABLET (FP) PO SCH (09:45)
[2016-11-16] MEDS: PANTOPRAZOLE 40 MG TABLET (FP) PO SCH (09:45)
[2016-11-16] MEDS: CALCIUM (OYSTER SHELL) 500 MG TABLET (FP) PO SCH (09:45)
[2016-11-16] MEDS: CHOLECALCIFEROL (VITAMIN D3) 1,000 UNIT TABLET (FP) PO SCH (09:45)
[2016-11-16] MEDS: POTASSIUM CHLORIDE TABS 20 MEQ TABLET.ER (FP) PO SCH ×2 (09:45→21:43)
[2016-11-16] MEDS ORDERED: FUROSEMIDE 40 MG/4 ML INJECTABLE VIAL IVPUSH ONE (14:00)
[2016-11-16] MEDS: ATORVASTATIN CA 10 MG TABLET (FP) PO SCH (21:43)
[2016-11-16 23:00] LABS: BASOPHIL 0.3 % (0-2.0); EOSINOPHIL 0.7 % (0-4.5); MCHC 33.8 g/dl (32.0-36.0); MEAN CELL VOLUME 88.8 fl (80-96); MEAN PLT VOLUME 7.7 fl (7.5-11.1); NEUTROPHILS 77.8 % (42.8-82.8); PLATELET COUNT 250 K/MM3 (134-434); WHITE BLOOD COUNT 9.1 K/mm3 (4.0-10.8)
[2016-11-17] MEDS: traMADol HCL 50 MG TABLET PO PRN ×2 (02:46→21:34)
[2016-11-17 08:04] LABS: BASOPHIL 0.5 % (0-2.0); EOSINOPHIL 1.4 % (0-4.5); MCH 28.6 pg (25.7-33.7); MCHC 31.5 g/dl (32.0-36.0); MEAN CELL VOLUME 90.8 fl (80-96); MEAN PLT VOLUME 7.9 fl (7.5-11.1); NEUTROPHILS 79.5 % (42.8-82.8); PLATELET COUNT 240 K/MM3 (134-434); RDW 15.4 % (11.6-15.6); WHITE BLOOD COUNT 8.4 K/mm3 (4.0-10.8)
[2016-11-17 08:16] LABS: ANION GAP 8 (8-16); CALCIUM 8.4 mg/dl (8.4-10.2); CO2 27 mmol/L (22-28); GLUCOSE,RANDOM 119 mg/dl (74-106); MAGNESIUM 1.8 mg/dL (1.8-2.4); PHOSPHOROUS 3.2 mg/dl (2.5-4.6)
[2016-11-17 08:17] LABS: INR 1.12 (0.82-1.09); PROTHROMBIN TIME (PATIENT) 12.5 SEC (10.2-13.0)
[2016-11-17] MEDS: CHOLECALCIFEROL (VITAMIN D3) 1,000 UNIT TABLET (FP) PO SCH (09:41)
[2016-11-17] MEDS: POTASSIUM CHLORIDE TABS 20 MEQ TABLET.ER (FP) PO SCH (09:43)
[2016-11-17] MEDS: ATENOLOL 50 MG TABLET (FP) PO SCH (09:43)
[2016-11-17] MEDS: CALCIUM (OYSTER SHELL) 500 MG TABLET (FP) PO SCH (09:44)
[2016-11-17] MEDS: FOLIC ACID 1 MG TABLET (FP) PO SCH (09:44)
[2016-11-17] MEDS: PANTOPRAZOLE 40 MG TABLET (FP) PO SCH (09:44)
--- NOTE | 2016-11-17 11:34 | DS ---
Physical Exam: SUBJECTIVE: Patient seen and examined, reports feeling much better, reports minimal pain upon movement. denies any chest pain, shortness of breath or dizziness. OBJECTIVE:Patient is a 86 y/o female with a past medical history of afib ( coumadin), RA, and upper GI bleed. Patient reports on October she was attempting to dress herself, tripped and fell upon her left buttock. Patient denies striking her head and is able to recall the full incident in detail. She reports ongoing pain to the left hip that worsens upon bearing weight onto the left lower extremity. She reports finishing a 7 day of course of antibiotic (pt is unable to recall the name) for a urinary tract infection 2 weeks ago. ER course was notable for: (1) xray of hip/pelvis intact right hip replacement, no acute fracture or subluxation (2)inr 6.5 (3)hgb 9.6 Vital Signs Period Temp Pulse Resp BP Sys/Alonso Pulse Ox Last 24 Hr 98.5 F-99.0 F 71-79 18-20 110-124/42-47 95-99 PHYSICAL EXAM GENERAL: Awake, alert, and fully oriented, in no acute distress. HEAD: Normal with no signs of trauma. EYES: Pupils equal, round and reactive to light, extraocular movements intact, sclera anicteric, conjunctiva clear. No lid lag. EARS, NOSE, THROAT: Ears normal, nares patent, oropharynx clear without exudates. Moist mucous membranes. NECK: Normal range of motion, supple without lymphadenopathy, JVD, or masses. LUNGS: Breath sounds equal, clear to auscultation bilaterally. No wheezes, and no crackles. No accessory muscle use. HEART: irregular rate and rhythm, normal S1 and S2, 3/6 systolic murmur, rub or gallop. ABDOMEN: Soft, nontender, not distended, normoactive bowel sounds, no guarding, no rebound, no masses. No hepatomegaly or splenomegaly. RECTAL: normal spincther, stool guiac negative MUSCULOSKELETAL: Normal range of motion at all joints. No bony deformities or tenderness. No CVA tenderness. UPPER EXTREMITIES: 2+ pulses, warm, well-perfused. No cyanosis. No clubbing. No peripheral edema. LOWER EXTREMITIES: 2+ pulses, warm, well-perfused. No calf tenderness. No peripheral edema. hematoma noted to the left lateral buttock with point tenderness. NEUROLOGICAL: Cranial nerves II-XII intact. Normal speech. Normal gait. PSYCHIATRIC: Cooperative. Good eye contact. Appropriate mood and affect. SKIN: Warm, dry, normal turgor, no rashes or lesions noted, normal capillary refill. LABS Laboratory Results - last 24 hr CBC WBC 8.4 K/mm3 (4.0-10.8) 11/17/16 07:00 RBC 3.38 M/mm3 (3.60-5.2) L 11/17/16 07:00 Hgb 9.7 GM/dl (10.7-15.3) L 11/17/16 07:00 Hct 30.7 % (32.4-45.2) L 11/17/16 07:00 MCV 90.8 fl (80-96) 11/17/16 07:00 MCH 28.6 pg (25.7-33.7) 11/17/16 07:00 MCHC 31.5 g/dl (32.0-36.0) L 11/17/16 07:00 RDW 15.4 % (11.6-15.6) 11/17/16 07:00 Plt Count 240 K/MM3 (134-434) 11/17/16 07:00 MPV 7.9 fl (7.5-11.1) 11/17/16 07:00 Neutrophils % 79.5 % (42.8-82.8) 11/17/16 07:00 Neutrophils % (Manual) 84 % (42.8-82.8) H 11/14/16 10:54 Band Neuts % (Manual) 2 % (0-10) 11/14/16 10:54 Lymphocytes % 9.7 % (8-40) 11/17/16 07:00 Lymphocytes % (Manual) 5 % (8-40) L 11/14/16 10:54 Monocytes % 8.9 % (3.8-10.2) 11/17/16 07:00 Monocytes % (Manual) 6 % (3.8-10.2) 11/14/16 10:54 Eosinophils % 1.4 % (0-4.5) D 11/17/16 07:00 Basophils % 0.5 % (0-2.0) 11/17/16 07:00 Basophils % (Manual) 3 % (0-2.0) H 11/14/16 10:54 Platelet Estimate Adequate (NORMAL) 11/14/16 10:54 CMP Sodium 139 mmol/L (136-145) 11/17/16 07:00 Potassium 3.8 mmol/L (3.5-5.1) 11/17/16 07:00 Chloride 104 mmol/L (98-107) 11/17/16 07:00 Carbon Dioxide 27 mmol/L (22-28) 11/17/16 07:00 Anion Gap 8 (8-16) 11/17/16 07:00 BUN 22 mg/dl (7-18) H 11/17/16 07:00 Creatinine 1.0 mg/dl (0.6-1.3) 11/17/16 07:00 Creat Clearance w eGFR 46.88 (>60) 11/14/16 10:54 Random Glucose 119 mg/dl (74-106) H 11/17/16 07:00 Calcium 8.4 mg/dl (8.4-10.2) 11/17/16 07:00 Phosphorus 3.2 mg/dl (2.5-4.6) 11/17/16 07:00 Magnesium 1.8 mg/dL (1.8-2.4) 11/17/16 07:00 Ferritin 46.760 ng/ml (6.9-282.5) 11/15/16 07:00 Total Bilirubin 0.5 mg/dl (0.2-1.0) D 11/14/16 10:54 AST 23 U/L (10-42) D 11/14/16 10:54 ALT 10 U/L (10-40) D 11/14/16 10:54 Alkaline Phosphatase 54 U/L (32-92) 11/14/16 10:54 Total Protein 6.2 g/dl (6.4-8.3) L 11/14/16 10:54 Albumin 3.6 g/dl (3.5-5.0) 11/14/16 10:54 Laboratory Tests 11/17/16 07:00 INR 1.12 Laboratory Tests 11/15/16 08:43 Stool Occult Blood Negative Laboratory Tests 11/15/16 11/15/16 07:00 07:00 Iron 21 TIBC 254 Iron Saturation 8 Ferritin 46.760 Microbiology 11/15/16 18:35 Urine - Urine Clean Catch Urine Culture - Preliminary ( straight cath) Staphylococcus Coagulase Neg 11/14/16 10:54 Urine - Urine Clean Catch Urine Culture - Final Staphylococcus Epidermidis IMAGING ct of hip no acute fracture noted HOSPITAL COURSE: * admitted from the emergency department for a supratherapeutic inr, vitamin k 5mg (11/14), INR 1.1, coumadin restarted with lovenox bridge repeat INR in AM * normocytic anemia, likely secondary to iron deficiency anemia vs acute blood loss due to hematoma, (s/p fall) 2 units of PRBC given on 11/16/16, repeat hgb 9.7. stool guiac was negative. Dr Garcia, patient's private carpet cleaning technician was consulted and followed. * patient has a past medical history of atrial fibrillation, remained rate controlled and atenolol was continued. 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 * patient is s/p fall, left hip pain, pt reports adequate pain from ultram. physical therapy evaluation was completed and patient is able to ambulate with the assistance of a rolling walker and 1 person with limited endurance, case discussed with patient and rn social services pt agrees to SNF for short term rehab * acute urinary tract infection, urine culture, straight cath, noted to be positive, patient was started on bactrim ds as per sensitivity. PLAN: - continue coumadin 5mg daily with lovenox, repeat INR in AM - continue bactrim ds for the next 7 days - discharge snf for short term rehab Date of Admission:11/15/16 Date of Discharge: 11/17/16 Minutes to complete discharge: 45 Discharge Summary Reason For Visit: ANEMIA/SUPRATHERAPEUTIC INR Current Active Problems Anemia (Acute) Atrial fibrillation (Acute) Contusion (Acute) Fall from ground level (Acute) GERD (gastroesophageal reflux disease) (Acute) Hip pain, left (Acute) Normocytic anemia (Acute) Supratherapeutic INR (Acute) Condition: Improved - Instructions Diet, Activity, Other Instructions: Resume regular low sodium diet Continue taking bactrim for the next 7 days - monitor INR very closely as Bactrim can increase the anticoagulant effect Continue lovenox with a bridge to coumadin Continue all other medications as prescribed Please follow up with your primary care physician within 1 week after discharge from rehab Referrals: Cali Marquez MD [Primary Care Provider] - Disposition: INTERMEDIATE FACILITY - Home Medications Comprehensive Discharge Medication List: Ambulatory Orders Calcium (Oyster Shell) [Os-Subhash 500MG -] 500 mg PO DAILY 10/25/13 Cholecalciferol (Vitamin D3) [Vitamin D3] 5,000 unit PO DAILY 10/25/13 Folic Acid - 1 mg PO DAILY 10/25/13 Methotrexate [Mexate -] 20 mg PO Q7D 10/25/13 Pantoprazole Sodium [Protonix] 40 mg PO DAILY 10/25/13 Potassium Chloride [K-Dur] 20 meq PO BID 10/25/13 Simvastatin [Zocor -] 20 mg PO HS 10/25/13 Warfarin Na [Coumadin] 5 mg PO DAILY 10/25/13 Warfarin Na [Coumadin] 2.5 mg PO DAILY 07/28/14 Atenolol [Tenormin] 50 mg PO DAILY 11/14/16 Problem List - Problems (1) Supratherapeutic INR Code(s): R79.1 - ABNORMAL COAGULATION PROFILE (2) Normocytic anemia Code(s): D64.9 - ANEMIA, UNSPECIFIED (3) Atrial fibrillation Code(s): I48.91 - UNSPECIFIED ATRIAL FIBRILLATION Qualifiers: Atrial fibrillation type: chronic Qualified Code(s): I48.2 - Chronic atrial fibrillation (4) GERD (gastroesophageal reflux disease) Code(s): K21.9 - GASTRO-ESOPHAGEAL REFLUX DISEASE WITHOUT ESOPHAGITIS (5) Hip pain, left Code(s): M25.552 - PAIN IN LEFT HIP This patient is new to me today: No Emergency Visit: Yes ED Registration Date: 11/15/16 Care time: The patient presented to the Emergency Department on the above date and was hospitalized for further evaluation of their emergent condition. Critical Care patient: No - Discharge Referral Referred to [facility] No
[2016-11-17] MEDS ORDERED: MAGNESIUM SULF 50% (8.12 MEQ/2 ML-1 GM VIAL) IVPB ONE (12:05)
[2016-11-17 12:11] LABS: SERUM IRON 21; TOTAL IRON BINDING CAPACITY 254; UIBC 233
[2016-11-17] MEDS: ENOXAPARIN NA (PORCINE) 80 MG/0.8 ML DISP.SYRIN SQ SCH ×2 (13:53→21:34)
[2016-11-17] MEDS: SULFAMETHOXAZOLE/TRIMETHOPRIM 800MG/160MG D.S. TABLET PO SCH ×2 (13:53→21:34)
[2016-11-17] MEDS ORDERED: WARFARIN NA 5 MG TABLET (UD) PO SCH (18:00)
[2016-11-17] MEDS: ATORVASTATIN CA 10 MG TABLET (FP) PO SCH (21:34)
[2016-11-18 06:33] VITALS: BP 115/48; PULSE 70; TEMP 98.3
[2016-11-18] MEDS: traMADol HCL 50 MG TABLET PO PRN (10:50)
[2016-11-18] MEDS: FOLIC ACID 1 MG TABLET (FP) PO SCH (10:51)
[2016-11-18] MEDS: CHOLECALCIFEROL (VITAMIN D3) 1,000 UNIT TABLET (FP) PO SCH (10:51)
[2016-11-18] MEDS: CALCIUM (OYSTER SHELL) 500 MG TABLET (FP) PO SCH (10:52)
[2016-11-18] MEDS: ATENOLOL 50 MG TABLET (FP) PO SCH (10:52)
[2016-11-18] MEDS: PANTOPRAZOLE 40 MG TABLET (FP) PO SCH (10:52)
[2016-11-18] MEDS: ENOXAPARIN NA (PORCINE) 80 MG/0.8 ML DISP.SYRIN SQ SCH (10:53)
[2016-11-18] MEDS: SULFAMETHOXAZOLE/TRIMETHOPRIM 800MG/160MG D.S. TABLET PO SCH (10:53)
== END 2016-11-18 11:30 | DRG 813 ==
LOC: SUPCPDRO 09:46 → FER 09:46 → FM/S 13:41 → OBSVTOIN 11-15 12:45
PROVIDERS: ADMIT Internal Medicine; ATTEND Registered Nurse Emergency
PROC: 30233N1 Transfusion of Nonautologous Red Blood Cells into Peripheral Vein, Percutaneous Approach (ICD-10-PCS; principal; 2016-11-16)
DX: D68.32 Hemorrhagic disorder due to extrinsic circulating anticoagulants (principal); Z79.01 Long term (current) use of anticoagulants; D64.9 Anemia, unspecified; I10 Essential (primary) hypertension; Z87.891 Personal history of nicotine dependence; S70.02XA Contusion of left hip, initial encounter; W19.XXXA Unspecified fall, initial encounter; Y93.89 Activity, other specified; Y92.098 Other place in other non-institutional residence as the place of occurrence of the external cause; Y99.8 Other external cause status; K21.9 Gastro-esophageal reflux disease without esophagitis; K57.90 Diverticulosis of intestine, part unspecified, without perforation or abscess without bleeding; I35.0 Nonrheumatic aortic (valve) stenosis; I48.2 Chronic atrial fibrillation
CPT/HCPCS: 36415; 36430; 71010-TC; 72192-TC; 73523-TC; 73552-TC-LT; 80048; 80053; 81003; 81015; 82272; 82728; 83540; 83550; 83735; 84100; 85025; 85610; 86850; 86900; 86901; 86922; 87086; 87186; 93005; 97116-GP; 97161-GP; 99284-25; G0378; P9038; P9058

== ENCOUNTER 2017-01-28 09:51 | Inpatient (IN) | payer OTHER, MEDICARE ==
[2017-01-28] MEDS ORDERED: SODIUM CHLORIDE 1,000 ML IV STA ×2 (10:01→11:28)
[2017-01-28] MEDS ORDERED: ACETAMINOPHEN 500 MG TABLET (FP) PO ONE (10:01)
--- NOTE | 2017-01-28 10:05 | PDOC ---
History of Present Illness - General Chief Complaint: Cold Symptoms Stated Complaint: FEVER CHILL ACHES Time Seen by Provider: 01/28/17 09:55 History Source: Patient, Family Exam Limitations: No Limitations - History of Present Illness Initial Comments: 01/28/17 10:02 87 y/o female with weakness and fever. Patient with hx of a-fib, diagnosed with FLU on and placed on Tamiflu. Getting worse. No cough. No N/V/d/C. Denies chest pain or SOB. As per daughter getting weaker and not eating. Last week patient was at [facility] due to a fall and is on Coumadin. Severity: moderate Past History - Past Medical History Allergies/Adverse Reactions: Allergies Allergy/AdvReac Type Severity Reaction Status Date / Time No Known Allergies Allergy Verified 01/28/17 09:52 Home Medications: Ambulatory Orders Calcium (Oyster Shell) [Os-Subhash 500MG -] 500 mg PO DAILY 10/25/13 Cholecalciferol (Vitamin D3) [Vitamin D3] 5,000 unit PO DAILY 10/25/13 Folic Acid - 1 mg PO DAILY 10/25/13 Methotrexate [Mexate -] 20 mg PO Q7D 10/25/13 Pantoprazole Sodium [Protonix] 40 mg PO DAILY 10/25/13 Simvastatin [Zocor -] 20 mg PO HS 10/25/13 Warfarin Na [Coumadin -] 2.5 mg PO DAILY 07/28/14 Atenolol [Tenormin] 50 mg PO DAILY 11/14/16 Acetaminophen [Tylenol .Regular Strength -] 650 mg PO Q4H PRN #0 tablet Tramadol HCl [Ultram -] 50 mg PO Q6H PRN #20 tablet MDD 4 11/17/16 Warfarin Na [Coumadin -] 5 mg PO DAILY@1800 tablet 11/17/16 Potassium Chloride [K-Dur -] 10 meq PO BID 01/28/17 Anemia: Yes Asthma: No Cancer: No Cardiac Disorders: Yes (POSSIBLE A-FIB) CVA: No COPD: No CHF: No Dementia: No Diabetes: No GI Disorders: Yes (upper gi bleed ) Disorders: No HTN: Yes Hypercholesterolemia: Yes Liver Disease: No Seizures: No Thyroid Disease: No - Surgical History Abdominal Surgery: No Appendectomy: Yes Cardiac Surgery: No Cholecystectomy: No Lung Surgery: No Neurologic Surgery: No Orthopedic Surgery: No - Immunization History Td Vaccination: Yes Immunization Up to Date: (THINKS 2 YEARS) - Suicide/Smoking/Psychosocial Hx Smoking Status: No Smoking History: Former smoker Have you smoked in the past 12 months: No Number of Cigarettes Smoked Daily: 0 If you are a former smoker, when did you quit?: 30 years ago 'Breaking Loose' booklet given: 11/26/11 Hx Alcohol Use: No Drug/Substance Use Hx: No Substance Use Type: None Hx Substance Use Treatment: No Review of Systems - Review of Systems Able to Perform ROS?: Yes Is the patient limited Vietnamese proficient: No Constitutional: Yes: Fever, Malaise. No: Chills HEENTM: No: Throat Pain Respiratory: No: Cough, Shortness of Breath Cardiac (ROS): No: Chest Pain ABD/GI: No: Diarrhea, Nausea, Vomiting : No: Dysuria Integumentary: No: Bruising Neurological: No: Dizziness All Other Systems: Reviewed and Negative *Physical Exam - Physical Exam General Appearance: Yes: Thin. No: Apparent Distress HEENT: positive: EOMI, TIMI, Normal ENT Inspection, Pharynx Normal Neck: positive: Trachea midline, Normal Thyroid, Supple (no menigeal signs noted ) Respiratory/Chest: positive: Lungs Clear, Normal Breath Sounds. negative: Chest Tender, Respiratory Distress Cardiovascular: positive: S1, S2, Tachycardia. 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 Will obtain labs and give fluids. 01/28/17 11:09 CXR NAD, no change from prior 01/28/17 12:01 Spoke with OSMAR Quinteros, will admit for dehydration, sepsis Dr. Law to accept Further orders as per Hospitalist team Will need to have a monitored bed Family in agreement with plan *DC/Admit/Observation/Transfer Diagnosis at time of Disposition: Dehydration, Atrial fibrillation with RVR Sepsis Qualifiers: Sepsis type: sepsis due to unspecified organism Qualified Code(s): A41.9 - Sepsis, unspecified organism - Discharge Dispostion Condition at time of disposition: Fair Admit: Yes - Referrals - Patient Instructions - Post Discharge Activity
[2017-01-28 10:09] VITALS: BMI 22.6
[2017-01-28] MEDS ORDERED: ACETAMINOPHEN 500 MG TABLET (FP) ONE (10:16)
[2017-01-28 10:23] LABS: MCH 30.6 pg (25.7-33.7); MCHC 33.4 g/dl (32.0-36.0); MEAN CELL VOLUME 91.8 fl (80-96); MEAN PLT VOLUME 8.9 fl (7.5-11.1); PLATELET COUNT 152 K/MM3 (134-434); RDW 16.4 % (11.6-15.6); WHITE BLOOD COUNT 6.6 K/mm3 (4.0-10.8)
[2017-01-28 10:42] LABS: PROTHROMBIN TIME (PATIENT) 53.9 SEC (10.2-13.0)
[2017-01-28 10:45] LABS: INR 4.97 (0.82-1.09)
[2017-01-28 10:59] LABS: ALK PHOS 63 U/L (32-92); ANION GAP 11 (8-16); BILIRUBIN,TOTAL 0.8 mg/dl (0.2-1.0); CALCIUM 8.3 mg/dl (8.4-10.2); CO2 21 mmol/L (22-28); CREATININE 1.4 mg/dl (0.6-1.3); GLUCOSE,RANDOM 142 mg/dl (74-106); SGOT/AST 60 U/L (10-42); SGPT/ALT 30 U/L (10-40); TOT PROT 5.9 g/dl (6.4-8.3)
[2017-01-28 11:28] LABS: PLATELET ESTIMATE ADEQUATE
--- NOTE | 2017-01-28 12:05 | HP ---
CHIEF COMPLAINT: Weakness PCP: Dr. Marquez HISTORY OF PRESENT ILLNESS: This is an 86 year old female with history of atrial fibrillation (on Coumadin), UGIB, and RA brought in by ambulance to the ED, accompanied by her daughter, complaining of fevers, chills, weakness, and malaise for four days. She saw her PCP on and was diagnosed with influenza by viral swab. She was placed on Tamiflu, but did not improve. She has not been eating or drinking at all. She denies chest pain or shortness of breath. She complains of some generalized abdominal pain, several episodes of non-bloody diarrhea, and headaches. ER course was notable for: (1) Temp 103.4 (2) P 121, irregular (3) INR 4.97 (4) BUN/Cr 38/1.4 (22/1.0 on prior visit in November) (5) CXR wet read: no infiltrate Recent Travel: None PAST MEDICAL HISTORY: As above PAST SURGICAL HISTORY: None Social History: Lives alone, independent in ADLs Smoking: Never smoker Alcohol: None Drugs: None Family History: Non-contributory to this admission Allergies No Known Allergies Allergy (Verified 01/28/17 09:52) HOME MEDICATIONS: Home Medications Medication Instructions Recorded Calcium (Oyster Shell) [Os-Subhash 500 mg PO DAILY 10/25/13 500MG -] Cholecalciferol (Vitamin D3) 5,000 unit PO DAILY 10/25/13 [Vitamin D3] Folic Acid - 1 mg PO DAILY 10/25/13 Methotrexate [Mexate -] 20 mg PO Q7D 10/25/13 Pantoprazole Sodium [Protonix] 40 mg PO DAILY 10/25/13 Simvastatin [Zocor -] 20 mg PO HS 10/25/13 Warfarin Na [Coumadin -] 2.5 mg PO DAILY 07/28/14 Atenolol [Tenormin] 50 mg PO DAILY 11/14/16 Acetaminophen [Tylenol .Regular 650 mg PO Q4H PRN #0 tablet 11/17/16 Strength -] Tramadol HCl [Ultram -] 50 mg PO Q6H PRN #20 tablet MDD 4 11/17/16 Warfarin Na [Coumadin -] 5 mg PO DAILY@1800 tablet 11/17/16 Potassium Chloride [K-Dur -] 10 meq PO BID 01/28/17 REVIEW OF SYSTEMS CONSTITUTIONAL: Fevers/chills, generalized weakness, malaise, loss of appetite HEENT: Absent: rhinorrhea, nasal congestion, throat pain, throat swelling, difficulty swallowing, mouth swelling, ear pain, eye pain, visual changes CARDIOVASCULAR: Absent: chest pain, syncope, palpitations, irregular heart rate, lightheadedness , peripheral edema RESPIRATORY: Dry cough Absent:shortness of breath, dyspnea with exertion, orthopnea, wheezing, stridor , hemoptysis GASTROINTESTINAL: Intermittent, generalized abdominal pain. Diarrhea. Absent: abdominal distension, nausea, vomiting, constipation, melena, hematochezia GENITOURINARY: Absent: dysuria, frequency, urgency, hesitancy, hematuria, flank pain, genital pain MUSCULOSKELETAL: Absent: myalgia, arthralgia, joint swelling, back pain, neck pain SKIN: Absent: rash, itching, pallor HEMATOLOGIC/IMMUNOLOGIC: Absent: easy bleeding, easy bruising, lymphadenopathy, frequent infections ENDOCRINE: Absent: unexplained weight gain, unexplained weight loss, heat intolerance, cold intolerance NEUROLOGIC: Headaches. Absent: focal weakness or paresthesias, dizziness, unsteady gait, seizure, mental status changes, bladder or bowel incontinence PSYCHIATRIC: Absent: anxiety, depression, suicidal or homicidal ideation, hallucinations. PHYSICAL EXAMINATION Vital Signs - 24 hr 01/28/17 09:52 Temperature 103.4 F H Pulse Rate 121 H Respiratory 20 Rate Blood Pressure 131/78 O2 Sat by Pulse 91 L Oximetry (%) GENERAL: Awake, alert, and fully oriented, in no acute distress. Appears weak. HEAD: Normal with no signs of trauma. EYES: Pupils equal, round and reactive to light, extraocular movements intact, sclera anicteric, conjunctiva clear. No lid lag. EARS, NOSE, THROAT: Ears normal, nares patent, oropharynx clear without exudates. Moist mucous membranes. NECK: Normal range of motion, supple without lymphadenopathy, JVD, or masses. LUNGS: Breath sounds equal, clear to auscultation bilaterally. No wheezes, and no crackles. No accessory muscle use. HEART: Irregular rhythm, S1 and S2 without murmur, rub or gallop. ABDOMEN: Soft, no focal tenderness, not distended, normoactive bowel sounds, no guarding, no rebound, no masses. No hepatomegaly or splenomegaly. MUSCULOSKELETAL: Normal range of motion at all joints. No bony deformities or tenderness. No CVA tenderness. UPPER EXTREMITIES: 2+ pulses, warm, well-perfused. No cyanosis. No clubbing. No peripheral edema. LOWER EXTREMITIES: 2+ pulses, warm, well-perfused. No calf tenderness. No peripheral edema. NEUROLOGICAL: Cranial nerves II-XII intact. Normal speech. Normal gait. PSYCHIATRIC: Cooperative. Good eye contact. Appropriate mood and affect. SKIN: Warm, dry, normal turgor, no rashes or lesions noted, normal capillary refill. Laboratory Results - last 24 hr 01/28/17 01/28/17 01/28/17 10:05 10:05 10:05 WBC 6.6 RBC 4.15 D Hgb 12.7 D Hct 38.0 D MCV 91.8 MCH 30.6 MCHC 33.4 RDW 16.4 H Plt Count 152 D MPV 8.9 D Neutrophils % No Result Required. Neutrophils % (Manual) 90.0 H Band Neutrophils % 3.0 Lymphocytes % No Result Required. Lymphocytes % (Manual) 2.0 L D Monocytes % (Manual) 5 Platelet Estimate Adequate Platelet Comment No Result Required. PT with INR 53.9 H INR 4.97 H* D Sodium 133 L Potassium 4.2 Chloride 101 Carbon Dioxide 21 L D Anion Gap 11 BUN 38 H D Creatinine 1.4 H D Creat Clearance w eGFR 35.41 Random Glucose 142 H Lactic Acid Calcium 8.3 L Total Bilirubin 0.8 D AST 60 H D ALT 30 D Alkaline Phosphatase 63 Total Protein 5.9 L Albumin 3.0 L 01/28/17 10:05 WBC RBC Hgb Hct MCV MCH MCHC RDW Plt Count MPV Neutrophils % Neutrophils % (Manual) Band Neutrophils % Lymphocytes % Lymphocytes % (Manual) Monocytes % (Manual) Platelet Estimate Platelet Comment PT with INR INR Sodium Potassium Chloride Carbon Dioxide Anion Gap BUN Creatinine Creat Clearance w eGFR Random Glucose Lactic Acid 1.7 Calcium Total Bilirubin AST ALT Alkaline Phosphatase Total Protein Albumin ASSESSMENT/PLAN: 87 year old female with known influenza presenting with sepsis , dehydration, generalized weakness, and poor po intake. 1. Sepsis secondary to influenza -Droplet isolation -Continue Tamiflu -IV hydration -Tylenol prn fever -Follow up blood cultures -Obtain UA/culture -No focal tenderness on abdominal exam, but consider CTAP if abdominal pain/ diarrhea continue 2. Atrial fibrillation -Monitor on telemetry (tachycardia) -Hold Coumadin (supratherapeutic INR) -Continue Atenolol 3. RA -Hold methotrexate in the setting of sepsis DISPO: Requires inpatient services. ADDENDUM 12:50pm: UA with 3+ leukesterase. Culture pending. Will give Ceftriaxone 1g daily for UTI.
[2017-01-28] MEDS ORDERED: ONDANSETRON 4 MG/2 ML VIAL IVPUSH PRN (12:18)
[2017-01-28] MEDS ORDERED: traMADol HCL 50 MG TABLET PO PRN (12:33)
[2017-01-28 12:44] LABS: URINE APPEARANCE Cloudy; URINE BILIRUBIN 1+ (NEGATIVE); URINE BLOOD 2+ (NEGATIVE); URINE COLOR YELLOW; URINE GLUCOSE (UA) Negative (NEGATIVE); URINE KETONE Trace (NEGATIVE); URINE LEUK ESTERASE 3+ (NEGATIVE); URINE NITRITE Negative (NEGATIVE); URINE PROTEIN 2+ (NEGATIVE); URINE UROBILINOGEN 0.2 (0.2-1.0)
[2017-01-28 12:56] LABS: URINE RBC 40-60 /hpf (0-3); URINE WBC >100 (0-5)
[2017-01-28 12:57] LABS: URINE BACTERIA MANY /hpf (NEGATIVE)
[2017-01-28] MEDS ORDERED: CEFTRIAXONE 1 GM in DEXTROSE 5%-WATER - 50 ML IVPB SCH (13:00)
[2017-01-28] MEDS ORDERED: cefTRIAXone SODIUM 1 GM VIAL ONE (13:25)
[2017-01-28] MEDS: SODIUM CHLORIDE 1,000 ML IV SCH (13:30)
[2017-01-28] MEDS: POTASSIUM CHLORIDE TABS 10 MEQ TABLET.ER (FP) PO SCH (21:16)
[2017-01-28] MEDS: ATORVASTATIN CA 10 MG TABLET (FP) PO SCH (21:16)
[2017-01-28] MEDS: OSELTAMIVIR PHOSPHATE 75 MG CAPSULE PO SCH (22:47)
[2017-01-29] MEDS: ACETAMINOPHEN 325 MG TABLET (FP) PO PRN (06:36)
--- NOTE | 2017-01-29 08:12 | PN ---
Physical Exam: SUBJECTIVE: Patient seen and examined, reports feeling tired, spiked fever tmax 101.5 at 0600, patient denies any shortness of breath. OBJECTIVE: patient is a 86 year old female with history of atrial fibrillation (on Coumadin), UGIB, and RA. Patient was admitted from the emergency department for sepsis secondary to influenza. Vital Signs Period Temp Pulse Resp BP Sys/Alonso Pulse Ox Last 24 Hr 98.0 F-103.4 F 95-123 18-30 100-139/61-79 91-99 GENERAL: The patient is awake, alert, and fully oriented, in no acute distress. HEAD: Normal with no signs of trauma. EYES: PERRL, extraocular movements intact, sclera anicteric, conjunctiva clear. No ptosis. ENT: Ears normal, nares patent, oropharynx clear without exudates, moist mucous membranes. NECK: Trachea midline, full range of motion, supple. LUNGS: Breath sounds equal, clear to auscultation bilaterally, no wheezes, no crackles, no accessory muscle use. HEART: irregular rate and rhythm, S1, S2 without murmur, rub or gallop. ABDOMEN: Soft, nontender, nondistended, normoactive bowel sounds, no guarding, no rebound, no hepatosplenomegaly, no masses. EXTREMITIES: 2+ pulses, warm, well-perfused, no edema. NEUROLOGICAL: Cranial nerves II through XII grossly intact. Normal speech, gait not observed. PSYCH: Normal mood, normal affect. SKIN: Warm, dry, normal turgor, no rashes or lesions noted Laboratory Results - last 24 hr 01/28/17 01/28/17 01/28/17 10:05 10:05 10:05 WBC 6.6 RBC 4.15 D Hgb 12.7 D Hct 38.0 D MCV 91.8 MCH 30.6 MCHC 33.4 RDW 16.4 H Plt Count 152 D MPV 8.9 D Neutrophils % No Result Required. Neutrophils % (Manual) 90.0 H Band Neutrophils % 3.0 Lymphocytes % No Result Required. Lymphocytes % (Manual) 2.0 L D Monocytes % (Manual) 5 Platelet Estimate Adequate Platelet Comment No Result Required. PT with INR 53.9 H INR 4.97 H* D Sodium 133 L Potassium 4.2 Chloride 101 Carbon Dioxide 21 L D Anion Gap 11 BUN 38 H D Creatinine 1.4 H D Creat Clearance w eGFR 35.41 Random Glucose 142 H Lactic Acid Calcium 8.3 L Total Bilirubin 0.8 D AST 60 H D ALT 30 D Alkaline Phosphatase 63 Total Protein 5.9 L Albumin 3.0 L Urine Color Urine Appearance Urine pH Ur Specific [place] Urine Protein Urine Glucose (UA) Urine Ketones Urine Blood Urine Nitrite Urine Bilirubin Urine Urobilinogen Ur Leukocyte Esterase Urine RBC Urine WBC Ur Epithelial Cells Urine Bacteria 01/28/17 01/28/17 10:05 12:35 WBC RBC Hgb Hct MCV MCH MCHC RDW Plt Count MPV Neutrophils % Neutrophils % (Manual) Band Neutrophils % Lymphocytes % Lymphocytes % (Manual) Monocytes % (Manual) Platelet Estimate Platelet Comment PT with INR INR Sodium Potassium Chloride Carbon Dioxide Anion Gap BUN Creatinine Creat Clearance w eGFR Random Glucose Lactic Acid 1.7 Calcium Total Bilirubin AST ALT Alkaline Phosphatase Total Protein Albumin Urine Color Yellow Urine Appearance Cloudy Urine pH 6.0 Ur Specific [place] 1.020 Urine Protein 2+ H Urine Glucose (UA) Negative Urine Ketones Trace Urine Blood 2+ H Urine Nitrite Negative Urine Bilirubin 1+ H Urine Urobilinogen 0.2 Ur Leukocyte Esterase 3+ H Urine RBC 40-60 Urine WBC >100 Ur Epithelial Cells Few Urine Bacteria Many Active Medications Generic Name Dose Route Start Last Admin Trade Name Freq PRN Reason Stop Dose Admin Acetaminophen 650 mg 01/28/17 12:11 01/29/17 06:36 Tylenol - PO 650 mg Q6H PRN Administration FEVER OR PAIN Atenolol 50 mg 01/28/17 14:59 Tenormin - PO DAILY [facility] Atorvastatin Calcium 10 mg 01/28/17 22:00 01/28/17 21:16 Lipitor - PO 10 mg HS ESTRELLA Administration Calcium Carbonate 500 mg 01/29/17 10:00 Os-Subhash 500mg - PO DAILY ESTRELLA Cholecalciferol 5,000 unit 01/29/17 10:00 Vitamin D3 - PO DAILY ESTRELLA Folic Acid 1 mg 01/29/17 10:00 Folic Acid - PO DAILY ESTRELLA Sodium Chloride 1,000 mls @ 100 mls/hr 01/28/17 12:15 01/28/17 13:30 Normal Saline - IV 01/29/17 22:14 100 mls/hr ASDIR ESTRELLA Administration Ceftriaxone Sodium 1 gm in 50 mls @ 100 mls/hr 01/29/17 10:00 Rocephin 1gm Ivpb (Pre-Docked) IVPB DAILY ESTRELLA Ondansetron HCl 4 mg 01/28/17 12:18 Zofran Injection IVPUSH Q6H PRN NAUSEA Oseltamivir Phosphate 75 mg 01/28/17 23:30 01/28/17 22:47 Tamiflu - PO 01/29/17 23:29 75 mg BID ESTRELLA Administration Pantoprazole Sodium 40 mg 01/29/17 10:00 Protonix - PO DAILY ESTRELLA Potassium Chloride 10 meq 01/28/17 22:00 01/28/17 21:16 K-Dur - PO 10 meq BID ESTRELLA Administration Tramadol HCl 50 mg 01/28/17 12:33 Ultram - PO Q6H PRN PAIN Microbiology 01/28/17 11:00 Blood - Peripheral Venous Blood Culture - Preliminary NO GROWTH OBTAINED AFTER 24 HOURS, INCUBATION TO CONTINUE FOR 4 DAYS. 01/28/17 11:22 Blood - Peripheral Venous Blood Culture - Preliminary Lactose Fermenting Neg Bacilli ASSESSMENT/PLAN: 1.ID Sepsis secondary to influenza - continue droplet isolation and tamiflu - continue iv hydration - + blood culture x 1, patient is immunocomprised on methotrexate for RA, case discussed with Dr Beth, ID, will start zosyn, repeat blood cultures ordered 2. card afib - rate controlled - inr is supratherepeutic, hold coumdain, repeat inr tomm 3. musc/skeletal RA -Hold methotrexate in the setting of sepsis 4. acute UTI - UA + leukocytes noted, pending culture - continue zosyn DISPO: Requires inpatient services. Visit type - Emergency Visit Emergency Visit: Yes ED Registration Date: 01/28/17 Care time: The patient presented to the Emergency Department on the above date and was hospitalized for further evaluation of their emergent condition. - New Patient This patient is new to me today: Yes Date on this admission: 01/29/17 - Critical Care Critical Care patient: No - Discharge Referral Referred to [facility] No
[2017-01-29 08:51] LABS: BASOPHIL 0.1 % (0-2.0); EOSINOPHIL 0.2 % (0-4.5); MCH 31.6 pg (25.7-33.7); MEAN PLT VOLUME 9.4 fl (7.5-11.1); NEUTROPHILS 87.5 % (42.8-82.8); PLATELET COUNT 136 K/MM3 (134-434); RDW 16.6 % (11.6-15.6); WHITE BLOOD COUNT 6.4 K/mm3 (4.0-10.8)
[2017-01-29 09:09] LABS: ALBUMIN 2.4 g/dl (3.5-5.0); ALK PHOS 66 U/L (32-92); ANION GAP 8 (8-16); BILIRUBIN,TOTAL 0.6 mg/dl (0.2-1.0); CALCIUM 7.8 mg/dl (8.4-10.2); CO2 20 mmol/L (22-28); CREATININE 1.3 mg/dl (0.6-1.3); GLUCOSE,RANDOM 115 mg/dl (74-106); SGOT/AST 61 U/L (10-42); SGPT/ALT 37 U/L (10-40); TOT PROT 4.9 g/dl (6.4-8.3)
[2017-01-29] MEDS ORDERED: ATENOLOL 50 MG TABLET (FP) PO SCH (10:00)
[2017-01-29] MEDS ORDERED: CEFTRIAXONE 1 GM/50 ML BAG IVPB SCH (10:00)
[2017-01-29 10:22] LABS: PROTHROMBIN TIME (PATIENT) 77.2 SEC (10.2-13.0)
[2017-01-29 10:24] LABS: INR 7.16 (0.82-1.09)
[2017-01-29] MEDS: ATENOLOL 25 MG TABLET (FP) PO SCH (10:25)
[2017-01-29] MEDS: PANTOPRAZOLE 40 MG TABLET (FP) PO SCH (10:25)
[2017-01-29] MEDS: FOLIC ACID 1 MG TABLET (FP) PO SCH (10:25)
[2017-01-29] MEDS: POTASSIUM CHLORIDE TABS 10 MEQ TABLET.ER (FP) PO SCH ×2 (10:25→21:16)
[2017-01-29] MEDS: CALCIUM (OYSTER SHELL) 500 MG TABLET (FP) PO SCH (10:25)
[2017-01-29] MEDS: OSELTAMIVIR PHOSPHATE 75 MG CAPSULE PO SCH ×2 (10:25→21:16)
[2017-01-29] MEDS: CHOLECALCIFEROL (VITAMIN D3) 1,000 UNIT TABLET (FP) PO SCH (10:26)
[2017-01-29] MEDS ORDERED: CEFTRIAXONE 1 G/50 ML PREMIX 50 ML IVPB SCH (10:30)
[2017-01-29] MEDS: PIPERACILLIN/TAZOB 3.375 GM 3.375 GM/50 ML BAG IVPB SCH ×2 (12:00→17:17)
[2017-01-29] MEDS: SODIUM CHLORIDE 1,000 ML IV SCH (14:41)
--- NOTE | 2017-01-29 16:43 | EKG ---
Test Reason : Blood Pressure : / mmHG Vent. Rate : 136 BPM Atrial Rate : 130 BPM P-R Int : 000 ms QRS Dur : 072 ms QT Int : 266 ms P-R-T Axes : 000 020 -31 degrees QTc Int : 400 ms ATRIAL FIBRILLATION WITH RAPID VENTRICULAR RESPONSE NONSPECIFIC T WAVE ABNORMALITY WHEN COMPARED WITH ECG OF 14-NOV-2016 09:57, ATRIAL FIBRILLATION HAS REPLACED SINUS RHYTHM INVERTED T WAVES HAVE REPLACED NONSPECIFIC T WAVE ABNORMALITY IN INFERIOR LEADS NONSPECIFIC T WAVE ABNORMALITY NOW EVIDENT IN ANTERIOR LEADS Confirmed by MD JAILENE, ROCK ([id number]) on 01/29/2017 4:43:28 PM Referred By: DR SNOW Confirmed By:ROCK DENT MD
--- NOTE | 2017-01-29 16:48 | PN ---
Progress Note (short form) - Note Progress Note: ID Consult dictated Gram Negative bacteremia/ sepsis ? source UTI/ possible sepsis secondary to UTI Acute influenza by history Coaguolpathy Azotemia Hx RA on MTX Await c/s Continue zosyn Continue Tamiflu Droplet precautions
--- NOTE | 2017-01-29 19:17 | CONS ---
DATE OF CONSULTATION: DATE OF DICTATION: 01/29/2017 INFECTIOUS DISEASE CONSULTATION HISTORY OF PRESENT ILLNESS: The patient is an 87-year-old female evaluated for positive blood cultures. Patient was feeling well until January. She had complained of worsening generalized weakness, fevers, and chills. She was seen by her primary care physician where a rapid influenza swab was performed in the office and was reportedly positive. She was started on Tamiflu. Despite the Tamiflu, she continued to feel worse with generalized weakness, fevers, chills, arthralgias and myalgias, as well as loose bowel movements. She presented to the emergency room, where her temperature was 103.4. Initial workup showed a normal white count. Urinalysis showed many white cells. 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 Patient complains of shaking chills and generalized body ache. She denies any chest pain, shortness of breath, cough, sputum production, no vomiting. Denies dysuria or hematuria. PAST MEDICAL HISTORY: Positive for atrial fibrillation, rheumatoid arthritis on methotrexate, history of hyperlipidemia, GI bleed. PAST SURGICAL HISTORY: Appendectomy. ALLERGIES: No known allergies. MEDICATION: Methotrexate, Protonix, Zocor, Coumadin, atenolol. SOCIAL HISTORY: Lives at home, former smoker. SYSTEMS REVIEW: Neurologic: No loss of consciousness, seizure activity, or focal weakness. Cardiac: Negative chest pain or palpitations. Respiratory: Negative cough or sputum production. Gastrointestinal: Positive for loose BMs. Genitourinary: Positive for urinary tract infection. LABORATORY DATA: White count 6.4, hematocrit 32.6, platelet count 136. Differential: 87 neutrophils, 4 lymphocytes, 8 monocytes. BUN 34, creatinine 1.3. Chest x-ray: Chronic changes. Total bilirubin 0.6, alkaline phosphatase 66. AST 61. INR 7.1. PHYSICAL EXAMINATION: General: She is awake. She is in mild to moderate distress secondary to shaking chills. Vital signs: Temperature 97.5F, T-max 103.4F, blood pressure 104/63, pulse 78 regular, respirations 16 per minute. HEENT: Sclerae anicteric. Cardiovascular: Heart sounds S1, S2. No murmur. Respiratory: Lungs clear. Abdomen: Soft. No suprapubic or flank tenderness. No right upper quadrant tenderness. Extremities: Positive for edema. IMPRESSION: 1. Gram-negative bacteremia/sepsis, possible genitourinary source. 2. Urinary tract infection, possible sepsis secondary to urinary tract infection. 3. Acute influenza by history. 4. Coagulopathy. 5. Azotemia. 6. History of rheumatoid arthritis on methotrexate. Await culture results. Pending cultures, empiric antibiotic coverage with Zosyn 3.375 g IV piggyback every 8 hours. Further recommendations pending cultures. Continue Tamiflu and precautions. Thank you for the kind referral. TERRELL COPELAND M.D. [facility]/[id number]
[2017-01-29] MEDS: ATORVASTATIN CA 10 MG TABLET (FP) PO SCH (21:16)
[2017-01-30] MEDS: PIPERACILLIN/TAZOB 3.375 GM 3.375 GM/50 ML BAG IVPB SCH ×3 (02:00→17:19)
[2017-01-30] MEDS: ACETAMINOPHEN 325 MG TABLET (FP) PO PRN (06:26)
[2017-01-30 07:51] LABS: ANION GAP 7 (8-16); CALCIUM 7.8 mg/dl (8.4-10.2); CO2 19 mmol/L (22-28); CREATININE 1.3 mg/dl (0.6-1.3); GLUCOSE,RANDOM 116 mg/dl (74-106)
[2017-01-30 07:53] LABS: BASOPHIL 0.3 % (0-2.0); EOSINOPHIL 0.7 % (0-4.5); MCH 31.7 pg (25.7-33.7); MCHC 34.8 g/dl (32.0-36.0); MEAN PLT VOLUME 9.7 fl (7.5-11.1); NEUTROPHILS 79.7 % (42.8-82.8); PLATELET COUNT 130 K/MM3 (134-434); WHITE BLOOD COUNT 6.9 K/mm3 (4.0-10.8)
[2017-01-30] MEDS: FOLIC ACID 1 MG TABLET (FP) PO SCH (09:03)
[2017-01-30] MEDS: CALCIUM (OYSTER SHELL) 500 MG TABLET (FP) PO SCH (09:04)
[2017-01-30] MEDS: OSELTAMIVIR PHOSPHATE 75 MG CAPSULE PO SCH (09:04)
[2017-01-30] MEDS: POTASSIUM CHLORIDE TABS 10 MEQ TABLET.ER (FP) PO SCH ×2 (09:04→21:41)
[2017-01-30] MEDS: ATENOLOL 25 MG TABLET (FP) PO SCH (09:04)
[2017-01-30] MEDS: PANTOPRAZOLE 40 MG TABLET (FP) PO SCH (09:04)
[2017-01-30] MEDS: CHOLECALCIFEROL (VITAMIN D3) 1,000 UNIT TABLET (FP) PO SCH (09:05)
--- NOTE | 2017-01-30 09:20 | PN ---
Progress Note, Physician History of Present Illness: Awake, alert C/O generalized weakness, intermittant fever/ chills. Occasional cough No c/o chest pain/ dyspnea No c/o dysuria/ hemturia Temps down WBC WNL BC LF - Current Medication List Current Medications: Active Medications Acetaminophen (Tylenol -) 650 mg PO Q6H PRN PRN Reason: FEVER OR PAIN Last Admin: 01/30/17 06:26 Dose: 650 mg Atenolol (Tenormin -) 50 mg PO DAILY [facility] Last Admin: 01/30/17 09:04 Dose: 50 mg Atorvastatin Calcium (Lipitor -) 10 mg PO HS [facility] Last Admin: 01/29/17 21:16 Dose: 10 mg Calcium Carbonate (Os-Subhash 500mg -) 500 mg PO DAILY [facility] Last Admin: 01/30/17 09:04 Dose: 500 mg Cholecalciferol (Vitamin D3 -) 5,000 unit PO DAILY [facility] Last Admin: 01/30/17 09:05 Dose: 5,000 unit Folic Acid (Folic Acid -) 1 mg PO DAILY [facility] Last Admin: 01/30/17 09:03 Dose: 1 mg Piperacillin Sod/Tazobactam Sod (Zosyn 3.375gm Ivpb (Pre-Docked)) 3.375 gm in 50 mls @ 100 mls/hr IVPB Q8H-IV ESTRELLA PRN Reason: Protocol Last Admin: 01/30/17 09:05 Dose: 100 mls/hr Ondansetron HCl (Zofran Injection) 4 mg IVPUSH Q6H PRN PRN Reason: NAUSEA Oseltamivir Phosphate (Tamiflu -) 75 mg PO BID [facility] Stop: 02/01/17 23:29 Last Admin: 01/30/17 09:04 Dose: 75 mg Pantoprazole Sodium (Protonix -) 40 mg PO DAILY [facility] Last Admin: 01/30/17 09:04 Dose: 40 mg Potassium Chloride (K-Dur -) 10 meq PO BID [facility] Last Admin: 01/30/17 09:04 Dose: 10 meq Tramadol HCl (Ultram -) 50 mg PO Q6H PRN PRN Reason: PAIN - Objective Vital Signs: Vital Signs Temperature 98.1 F 01/30/17 09:00 Pulse Rate 106 H 01/30/17 06:00 Respiratory Rate 18 01/30/17 06:00 Blood Pressure 135/83 01/30/17 06:00 O2 Sat by Pulse Oximetry (%) 95 01/30/17 08:05 Constitutional: Yes: No Distress Cardiovascular: Yes: Regular Rate and Rhythm, S1, S2 Respiratory: Yes: CTA Bilaterally Gastrointestinal: Yes: Normal Bowel Sounds, Soft Edema: No Labs: CBC, BMP 01/30/17 07:20 01/30/17 07:20 INR, PTT INR 7.16 (0.82-1.09) H* D 01/29/17 10:00 Assessment/Plan Gram Negative bacteremia/ sepsis, likely source UTI Acute influenza by history Coagulopathy Azotemia Hx RA on MTX Await final blood c/s Continue zosyn
--- NOTE | 2017-01-30 10:22 | PN ---
Physical Exam: SUBJECTIVE: Patient seen and examined, patient reports feeling alot better, reports more energy, patient denies any chest pain or shortness of breath. OBJECTIVE: patient is a 86 year old female with history of atrial fibrillation (on Coumadin), UGIB, and RA. Patient was admitted from the emergency department for sepsis secondary to influenza and bacteremia. Vital Signs Period Temp Pulse Resp BP Sys/Alonso Pulse Ox Last 24 Hr 97.5 F-100.1 F 78-106 16-18 104-135/62-83 93-96 GENERAL: The patient is awake, alert, and fully oriented, in no acute distress. HEAD: Normal with no signs of trauma. EYES: PERRL, extraocular movements intact, sclera anicteric, conjunctiva clear. No ptosis. ENT: Ears normal, nares patent, oropharynx clear without exudates, moist mucous membranes. NECK: Trachea midline, full range of motion, supple. LUNGS: Breath sounds equal, clear to auscultation bilaterally, no wheezes, no crackles, no accessory muscle use. HEART: Regular rate and rhythm, S1, S2 without murmur, rub or gallop. ABDOMEN: Soft, nontender, nondistended, normoactive bowel sounds, no guarding, no rebound, no hepatosplenomegaly, no masses. EXTREMITIES: 2+ pulses, warm, well-perfused, no edema. NEUROLOGICAL: Cranial nerves II through XII grossly intact. Normal speech, gait not observed. PSYCH: Normal mood, normal affect. SKIN: Warm, dry, normal turgor, no rashes or lesions noted Laboratory Results - last 24 hr CBC WBC 6.9 K/mm3 (4.0-10.8) 01/30/17 07:20 RBC 3.31 M/mm3 (3.60-5.2) L 01/30/17 07:20 Hgb 10.5 GM/dl (10.7-15.3) L 01/30/17 07:20 Hct 30.1 % (32.4-45.2) L 01/30/17 07:20 MCV 91.0 fl (80-96) 01/30/17 07:20 MCH 31.7 pg (25.7-33.7) 01/30/17 07:20 MCHC 34.8 g/dl (32.0-36.0) 01/30/17 07:20 RDW 16.0 % (11.6-15.6) H 01/30/17 07:20 Plt Count 130 K/MM3 (134-434) L 01/30/17 07:20 MPV 9.7 fl (7.5-11.1) 01/30/17 07:20 Neutrophils % 79.7 % (42.8-82.8) 01/30/17 07:20 Neutrophils % (Manual) 90.0 % (42.8-82.8) H 01/28/17 10:05 Band Neutrophils % 3.0 % (0-10) 01/28/17 10:05 Lymphocytes % 7.9 % (8-40) L D 01/30/17 07:20 Lymphocytes % (Manual) 2.0 % (8-40) L D 01/28/17 10:05 Monocytes % 11.4 % (3.8-10.2) H 01/30/17 07:20 Monocytes % (Manual) 5 % (3.8-10.2) 01/28/17 10:05 Eosinophils % 0.7 % (0-4.5) D 01/30/17 07:20 Basophils % 0.3 % (0-2.0) 01/30/17 07:20 Platelet Estimate Adequate 01/28/17 10:05 Platelet Comment No Result Required. 01/28/17 10:05 CMP Sodium 136 mmol/L (136-145) 01/30/17 07:20 Potassium 3.9 mmol/L (3.5-5.1) 01/30/17 07:20 Chloride 110 mmol/L (98-107) H 01/30/17 07:20 Carbon Dioxide 19 mmol/L (22-28) L 01/30/17 07:20 Anion Gap 7 (8-16) L 01/30/17 07:20 BUN 27 mg/dl (7-18) H D 01/30/17 07:20 Creatinine 1.3 mg/dl (0.6-1.3) 01/30/17 07:20 Creat Clearance w eGFR 38.57 (>60) 01/29/17 07:32 Random Glucose 116 mg/dl (74-106) H 01/30/17 07:20 Lactic Acid 1.7 mmol/L (0.4-2.0) 01/28/17 10:05 Calcium 7.8 mg/dl (8.4-10.2) L 01/30/17 07:20 Magnesium 2.0 mg/dL (1.8-2.4) 01/29/17 07:32 Total Bilirubin 0.6 mg/dl (0.2-1.0) D 01/29/17 07:32 AST 61 U/L (10-42) H 01/29/17 07:32 ALT 37 U/L (10-40) D 01/29/17 07:32 Alkaline Phosphatase 66 U/L (32-92) 01/29/17 07:32 Total Protein 4.9 g/dl (6.4-8.3) L 01/29/17 07:32 Albumin 2.4 g/dl (3.5-5.0) L 01/29/17 07:32 Laboratory Tests 01/30/17 10:00 PT with INR 29.8 H INR 2.71 H D Active Medications Generic Name Dose Route Start Last Admin Trade Name Freq PRN Reason Stop Dose Admin Acetaminophen 650 mg 01/28/17 12:11 01/30/17 06:26 Tylenol - PO 650 mg Q6H PRN Administration FEVER OR PAIN Atenolol 50 mg 01/28/17 14:59 01/30/17 09:04 Tenormin - PO 50 mg DAILY ESTRELLA Administration Atorvastatin Calcium 10 mg 01/28/17 22:00 01/29/17 21:16 Lipitor - PO 10 mg HS ESTRELLA Administration Calcium Carbonate 500 mg 01/29/17 10:00 01/30/17 09:04 Os-Subhash 500mg - PO 500 mg DAILY ESTRELLA Administration Cholecalciferol 5,000 unit 01/29/17 10:00 01/30/17 09:05 Vitamin D3 - PO 5,000 unit DAILY ESTRELLA Administration Folic Acid 1 mg 01/29/17 10:00 01/30/17 09:03 Folic Acid - PO 1 mg DAILY ESTRELLA Administration Piperacillin Sod/Tazobactam Sod 3.375 gm in 50 mls @ 100 mls/hr 01/29/17 12: 00 01/30/17 09:05 Zosyn 3.375gm Ivpb (Pre-Docked) IVPB 100 mls/hr Q8H-IV ESTRELLA Administration Protocol Ondansetron HCl 4 mg 01/28/17 12:18 Zofran Injection IVPUSH Q6H PRN NAUSEA Oseltamivir Phosphate 75 mg 01/28/17 23:30 01/30/17 09:04 Tamiflu - PO 02/01/17 23:29 75 mg BID ESTRELLA Administration Pantoprazole Sodium 40 mg 01/29/17 10:00 01/30/17 09:04 Protonix - PO 40 mg DAILY ESTRELLA Administration Potassium Chloride 10 meq 01/28/17 22:00 01/30/17 09:04 K-Dur - PO 10 meq BID ESTRELLA Administration Tramadol HCl 50 mg 01/28/17 12:33 Ultram - PO Q6H PRN PAIN Microbiology 01/28/17 11:22 Blood - Peripheral Venous Blood Culture - Preliminary Lactose Fermenting Neg Bacilli 01/29/17 07:42 Blood - Peripheral Venous Blood Culture - Preliminary NO GROWTH OBTAINED AFTER 24 HOURS, INCUBATION TO CONTINUE FOR 4 DAYS. 01/29/17 07:32 Blood - Peripheral Venous Blood Culture - Preliminary NO GROWTH OBTAINED AFTER 24 HOURS, INCUBATION TO CONTINUE FOR 4 DAYS. 01/28/17 11:00 Blood - Peripheral Venous Blood Culture - Preliminary NO GROWTH OBTAINED AFTER 24 HOURS, INCUBATION TO CONTINUE FOR 4 DAYS. ASSESSMENT/PLAN: 1.ID Sepsis secondary to influenza - continue droplet isolation and tamiflu bacteremia - likely secondary to source, continue zosyn, until final cultures are resulted - pending echo - Dr Beth, ID consulted and following. 2. card afib - rate controlled - inr 2.7, start coumadin tonight 2.5mg, therapeutic, patient home regimen of Coumadin sunday and sunday 2.5mg then 5mg coumadin throughout the week. 3. musc/skeletal RA -Hold methotrexate in the setting of sepsis 4. acute UTI - UA + leukocytes noted, pending culture - continue zosyn DISPO: Requires inpatient service Visit type - Emergency Visit Emergency Visit: Yes ED Registration Date: 01/28/17 Care time: The patient presented to the Emergency Department on the above date and was hospitalized for further evaluation of their emergent condition. - New Patient This patient is new to me today: No - Critical Care Critical Care patient: No - Discharge Referral Referred to [facility] No
[2017-01-30 10:48] LABS: INR 2.71 (0.82-1.09); PROTHROMBIN TIME (PATIENT) 29.8 SEC (10.2-13.0)
[2017-01-30] MEDS ORDERED: WARFARIN NA 2.5 MG TABLET (FP) PO ONE (18:00)
[2017-01-30] MEDS: ATORVASTATIN CA 10 MG TABLET (FP) PO SCH (21:40)
[2017-01-30] MEDS: OSELTAMIVIR PHOSPHATE 30 MG CAPSULE PO SCH (21:40)
[2017-01-31] MEDS: PIPERACILLIN/TAZOB 3.375 GM 3.375 GM/50 ML BAG IVPB SCH ×2 (01:13→09:17)
--- NOTE | 2017-01-31 08:39 | PN ---
Physical Exam: SUBJECTIVE: Patient seen and examined, reports feeling better, reports more energy OBJECTIVE: patient is a 86 year old female with history of atrial fibrillation (on Coumadin), UGIB, and RA. Patient was admitted from the emergency department for sepsis secondary to influenza and ecoli bacteremia. Vital Signs Period Temp Pulse Resp BP Sys/Alonso Pulse Ox Last 24 Hr 98.0 F-98.3 F 79-93 18-20 115-144/67-78 97-97 GENERAL: The patient is awake, alert, and fully oriented, in no acute distress. HEAD: Normal with no signs of trauma. EYES: PERRL, extraocular movements intact, sclera anicteric, conjunctiva clear. No ptosis. ENT: Ears normal, nares patent, oropharynx clear without exudates, moist mucous membranes. NECK: Trachea midline, full range of motion, supple. LUNGS: Breath sounds equal, clear to auscultation bilaterally, no wheezes, no crackles, no accessory muscle use. HEART: Regular rate and rhythm, S1, S2 without murmur, rub or gallop. ABDOMEN: Soft, nontender, nondistended, normoactive bowel sounds, no guarding, no rebound, no hepatosplenomegaly, no masses. EXTREMITIES: 2+ pulses, warm, well-perfused, no edema. NEUROLOGICAL: Cranial nerves II through XII grossly intact. Normal speech, gait not observed. PSYCH: Normal mood, normal affect. SKIN: Warm, dry, normal turgor, no rashes or lesions noted Laboratory Results - last 24 hr Laboratory Tests 01/31/17 07:00 PT with INR 28.9 H INR 2.63 H CBC WBC 9.7 K/mm3 (4.0-10.8) D 01/31/17 07:00 RBC 3.69 M/mm3 (3.60-5.2) 01/31/17 07:00 Hgb 11.4 GM/dl (10.7-15.3) 01/31/17 07:00 Hct 33.8 % (32.4-45.2) 01/31/17 07:00 MCV 91.5 fl (80-96) 01/31/17 07:00 MCH 31.0 pg (25.7-33.7) 01/31/17 07:00 MCHC 33.8 g/dl (32.0-36.0) 01/31/17 07:00 RDW 16.9 % (11.6-15.6) H 01/31/17 07:00 Plt Count 235 K/MM3 (134-434) D 01/31/17 07:00 MPV 8.9 fl (7.5-11.1) 01/31/17 07:00 Neutrophils % 74.5 % (42.8-82.8) 01/31/17 07:00 Neutrophils % (Manual) 90.0 % (42.8-82.8) H 01/28/17 10:05 Band Neutrophils % 3.0 % (0-10) 01/28/17 10:05 Lymphocytes % 11.4 % (8-40) D 01/31/17 07:00 Lymphocytes % (Manual) 2.0 % (8-40) L D 01/28/17 10:05 Monocytes % 12.4 % (3.8-10.2) H 01/31/17 07:00 Monocytes % (Manual) 5 % (3.8-10.2) 01/28/17 10:05 Eosinophils % 1.6 % (0-4.5) D 01/31/17 07:00 Basophils % 0.1 % (0-2.0) 01/31/17 07:00 Platelet Estimate Adequate 01/28/17 10:05 Platelet Comment No Result Required. 01/28/17 10:05 CMP Sodium 138 mmol/L (136-145) 01/31/17 07:00 Potassium 3.9 mmol/L (3.5-5.1) 01/31/17 07:00 Chloride 109 mmol/L (98-107) H 01/31/17 07:00 Carbon Dioxide 21 mmol/L (22-28) L 01/31/17 07:00 Anion Gap 8 (8-16) 01/31/17 07:00 BUN 25 mg/dl (7-18) H 01/31/17 07:00 Creatinine 1.3 mg/dl (0.6-1.3) 01/31/17 07:00 Creat Clearance w eGFR 38.57 (>60) 01/29/17 07:32 Random Glucose 126 mg/dl (74-106) H 01/31/17 07:00 Lactic Acid 1.7 mmol/L (0.4-2.0) 01/28/17 10:05 Calcium 8.0 mg/dl (8.4-10.2) L 01/31/17 07:00 Phosphorus 2.5 mg/dl (2.5-4.6) D 01/31/17 07:00 Magnesium 1.9 mg/dL (1.8-2.4) 01/31/17 07:00 Total Bilirubin 0.6 mg/dl (0.2-1.0) D 01/29/17 07:32 AST 61 U/L (10-42) H 01/29/17 07:32 ALT 37 U/L (10-40) D 01/29/17 07:32 Alkaline Phosphatase 66 U/L (32-92) 01/29/17 07:32 Total Protein 4.9 g/dl (6.4-8.3) L 01/29/17 07:32 Albumin 2.4 g/dl (3.5-5.0) L 01/29/17 07:32 Active Medications Generic Name Dose Route Start Last Admin Trade Name Heriq PRN Reason Stop Dose Admin Acetaminophen 650 mg 01/28/17 12:11 01/30/17 06:26 Tylenol - PO 650 mg Q6H PRN Administration FEVER OR PAIN Atenolol 50 mg 01/28/17 14:59 01/30/17 09:04 Tenormin - PO 50 mg DAILY ESTRELLA Administration Atorvastatin Calcium 10 mg 01/28/17 22:00 01/30/17 21:40 Lipitor - PO 10 mg HS ESTRELLA Administration Calcium Carbonate 500 mg 01/29/17 10:00 01/30/17 09:04 Os-Subhash 500mg - PO 500 mg DAILY ESTRELLA Administration Cholecalciferol 5,000 unit 01/29/17 10:00 01/30/17 09:05 Vitamin D3 - PO 5,000 unit DAILY ESTRELLA Administration Folic Acid 1 mg 01/29/17 10:00 01/30/17 09:03 Folic Acid - PO 1 mg DAILY ESTRELLA Administration Piperacillin Sod/Tazobactam Sod 3.375 gm in 50 mls @ 100 mls/hr 01/29/17 12: 00 01/31/17 01:13 Zosyn 3.375gm Ivpb (Pre-Docked) IVPB 100 mls/hr Q8H-IV ESTRELLA Administration Protocol Ondansetron HCl 4 mg 01/28/17 12:18 Zofran Injection IVPUSH Q6H PRN NAUSEA Oseltamivir Phosphate 30 mg 01/30/17 22:00 01/30/17 21:40 Tamiflu - PO 02/02/17 10:01 30 mg BID ESTRELLA Administration Pantoprazole Sodium 40 mg 01/29/17 10:00 01/30/17 09:04 Protonix - PO 40 mg DAILY ESTRELLA Administration Potassium Chloride 10 meq 01/28/17 22:00 01/30/17 21:41 K-Dur - PO 10 meq BID ESTRELLA Administration Tramadol HCl 50 mg 01/28/17 12:33 Ultram - PO Q6H PRN PAIN Microbiology 01/28/17 11:22 Blood - Peripheral Venous Blood Culture - Final Escherichia Coli 01/28/17 11:00 Blood - Peripheral Venous Blood Culture - Preliminary NO GROWTH OBTAINED AFTER 72 HOURS, INCUBATION TO CONTINUE FOR 2 DAYS. 01/28/17 12:30 Urine - Urine Clean Catch Urine Culture - Final Escherichia Coli 01/29/17 07:42 Blood - Peripheral Venous Blood Culture - Preliminary NO GROWTH OBTAINED AFTER 48 HOURS, INCUBATION TO CONTINUE FOR 3 DAYS. 01/29/17 07:32 Blood - Peripheral Venous Blood Culture - Preliminary NO GROWTH OBTAINED AFTER 48 HOURS, INCUBATION TO CONTINUE FOR 3 DAYS. ASSESSMENT/PLAN: 1.ID Sepsis secondary to influenza - continue droplet isolation and tamiflu ecoli bacteremia - likely secondary to source, continue zosyn - echo 55-60%, lv wnl, moderate aortic stenosis - Dr Beth, ID consulted and following. 2. card afib - rate controlled - inr 2.6, continue coumadin home regimen - patient home regimen of Coumadin sunday and sunday 2.5mg then 5mg coumadin throughout the week. 3. musc/skeletal RA -Hold methotrexate in the setting of sepsis 4. acute UTI - urine culture +ecoli, continue zosyn DISPO: Requires inpatient service Visit type - Emergency Visit Emergency Visit: Yes ED Registration Date: 01/28/17 Care time: The patient presented to the Emergency Department on the above date and was hospitalized for further evaluation of their emergent condition. - New Patient This patient is new to me today: No - Critical Care Critical Care patient: No - Discharge Referral Referred to [facility] Med P.C.: No
[2017-01-31 08:46] LABS: BASOPHIL 0.1 % (0-2.0); EOSINOPHIL 1.6 % (0-4.5); INR 2.63 (0.82-1.09); MCHC 33.8 g/dl (32.0-36.0); MEAN CELL VOLUME 91.5 fl (80-96); MEAN PLT VOLUME 8.9 fl (7.5-11.1); NEUTROPHILS 74.5 % (42.8-82.8); PLATELET COUNT 235 K/MM3 (134-434); PROTHROMBIN TIME (PATIENT) 28.9 SEC (10.2-13.0); RDW 16.9 % (11.6-15.6); WHITE BLOOD COUNT 9.7 K/mm3 (4.0-10.8)
[2017-01-31 09:06] LABS: ANION GAP 8 (8-16); CO2 21 mmol/L (22-28); CREATININE 1.3 mg/dl (0.6-1.3); GLUCOSE,RANDOM 126 mg/dl (74-106); MAGNESIUM 1.9 mg/dL (1.8-2.4); PHOSPHOROUS 2.5 mg/dl (2.5-4.6)
[2017-01-31] MEDS: CHOLECALCIFEROL (VITAMIN D3) 1,000 UNIT TABLET (FP) PO SCH (09:15)
[2017-01-31] MEDS: CALCIUM (OYSTER SHELL) 500 MG TABLET (FP) PO SCH (09:15)
[2017-01-31] MEDS: ATENOLOL 25 MG TABLET (FP) PO SCH (09:15)
[2017-01-31] MEDS: PANTOPRAZOLE 40 MG TABLET (FP) PO SCH (09:15)
[2017-01-31] MEDS: POTASSIUM CHLORIDE TABS 10 MEQ TABLET.ER (FP) PO SCH ×2 (09:15→22:33)
[2017-01-31] MEDS: FOLIC ACID 1 MG TABLET (FP) PO SCH (09:15)
[2017-01-31] MEDS: OSELTAMIVIR PHOSPHATE 30 MG CAPSULE PO SCH ×2 (09:15→22:33)
--- NOTE | 2017-01-31 09:22 | PN ---
Progress Note, Physician History of Present Illness: Awake, alert OOB in chair Feeling better No c/o fever/ chills No dysuria/ hematuria Temps down WBC WNL BC, urine c/s E coli - Current Medication List Current Medications: Active Medications Acetaminophen (Tylenol -) 650 mg PO Q6H PRN PRN Reason: FEVER OR PAIN Last Admin: 01/30/17 06:26 Dose: 650 mg Atenolol (Tenormin -) 50 mg PO DAILY [facility] Last Admin: 01/31/17 09:15 Dose: 50 mg Atorvastatin Calcium (Lipitor -) 10 mg PO HS [facility] Last Admin: 01/30/17 21:40 Dose: 10 mg Calcium Carbonate (Os-Subhash 500mg -) 500 mg PO DAILY [facility] Last Admin: 01/31/17 09:15 Dose: 500 mg Cholecalciferol (Vitamin D3 -) 5,000 unit PO DAILY [facility] Last Admin: 01/31/17 09:15 Dose: 5,000 unit Folic Acid (Folic Acid -) 1 mg PO DAILY [facility] Last Admin: 01/31/17 09:15 Dose: 1 mg Piperacillin Sod/Tazobactam Sod (Zosyn 3.375gm Ivpb (Pre-Docked)) 3.375 gm in 50 mls @ 100 mls/hr IVPB Q8H-IV ESTRELLA PRN Reason: Protocol Last Admin: 01/31/17 09:17 Dose: 100 mls/hr Ondansetron HCl (Zofran Injection) 4 mg IVPUSH Q6H PRN PRN Reason: NAUSEA Oseltamivir Phosphate (Tamiflu -) 30 mg PO BID [facility] Stop: 02/02/17 10:01 Last Admin: 01/31/17 09:15 Dose: 30 mg Pantoprazole Sodium (Protonix -) 40 mg PO DAILY [facility] Last Admin: 01/31/17 09:15 Dose: 40 mg Potassium Chloride (K-Dur -) 10 meq PO BID [facility] Last Admin: 01/31/17 09:15 Dose: 10 meq Tramadol HCl (Ultram -) 50 mg PO Q6H PRN PRN Reason: PAIN - Objective Vital Signs: Vital Signs Temperature 98.3 F 01/31/17 06:00 Pulse Rate 84 01/31/17 06:00 Respiratory Rate 20 01/31/17 06:00 Blood Pressure 144/69 01/31/17 06:00 O2 Sat by Pulse Oximetry (%) 97 01/31/17 06:00 Constitutional: Yes: No Distress Eyes: Yes: Conjunctiva Clear Cardiovascular: Yes: Regular Rate and Rhythm, S1, S2 Respiratory: Yes: CTA Bilaterally Gastrointestinal: Yes: Normal Bowel Sounds, Soft, Abdomen, Obese, Other (no suprapubic tenderness). No: Tenderness Edema: Yes Peripheral Pulses: Left Femoral: 1+, Right Femoral: 1+ Labs: CBC, BMP 01/31/17 07:00 01/31/17 07:00 INR, PTT INR 2.63 (0.82-1.09) H 01/31/17 07:00 Assessment/Plan E. coli bacteremia/ sepsis, source UTI/ sepsis secondary to UTI Acute influenza by history Coagulopathy Azotemia Hx RA on MTX Substitute cefazolin 1gm q8h
[2017-01-31] MEDS ORDERED: CEFAZOLIN 1 GM in DEXTROSE 5%-WATER - 50 ML IVPB SCH (09:30)
[2017-01-31] MEDS: CEFAZOLIN 1 GM/D5W 1 GM/50 ML BAG IVPB SCH ×2 (10:10→17:47)
[2017-01-31] MEDS ORDERED: WARFARIN NA 5 MG TABLET (UD) PO ONE (18:00)
[2017-01-31] MEDS: ATORVASTATIN CA 10 MG TABLET (FP) PO SCH (22:33)
[2017-02-01] MEDS: CEFAZOLIN 1 GM/D5W 1 GM/50 ML BAG IVPB SCH ×2 (01:17→10:09)
[2017-02-01 06:41] VITALS: BP 146/70; PULSE 80; TEMP 98.5
[2017-02-01 08:50] LABS: INR 3.27 (0.82-1.09); PROTHROMBIN TIME (PATIENT) 35.8 SEC (10.2-13.0)
[2017-02-01 08:52] LABS: EOSINOPHIL 2.3 % (0-4.5); MCH 30.7 pg (25.7-33.7); MCHC 33.2 g/dl (32.0-36.0); MEAN CELL VOLUME 92.4 fl (80-96); MEAN PLT VOLUME 8.6 fl (7.5-11.1); NEUTROPHILS 75.6 % (42.8-82.8); PLATELET COUNT 302 K/MM3 (134-434); RDW 16.6 % (11.6-15.6); WHITE BLOOD COUNT 8.5 K/mm3 (4.0-10.8)
[2017-02-01 08:54] LABS: CREATININE 1.1 mg/dl (0.6-1.3); GLUCOSE,RANDOM 120 mg/dl (74-106); MAGNESIUM 1.8 mg/dL (1.8-2.4)
[2017-02-01 09:02] LABS: ANION GAP 8 (8-16); CALCIUM 8.4 mg/dl (8.4-10.2); CO2 22 mmol/L (22-28)
--- NOTE | 2017-02-01 09:05 | PN ---
Physical Exam: SUBJECTIVE: Patient seen and examined OBJECTIVE: Vital Signs Period Temp Pulse Resp BP Sys/Alonso Pulse Ox Last 24 Hr 98 F-98.5 F 55-98 17-20 102-146/54-80 95-97 GENERAL: The patient is awake, alert, and fully oriented, in no acute distress. HEAD: Normal with no signs of trauma. EYES: PERRL, extraocular movements intact, sclera anicteric, conjunctiva clear. No ptosis. ENT: Ears normal, nares patent, oropharynx clear without exudates, moist mucous membranes. NECK: Trachea midline, full range of motion, supple. LUNGS: Breath sounds equal, clear to auscultation bilaterally, no wheezes, no crackles, no accessory muscle use. HEART: Regular rate and rhythm, S1, S2 without murmur, rub or gallop. ABDOMEN: Soft, nontender, nondistended, normoactive bowel sounds, no guarding, no rebound, no hepatosplenomegaly, no masses. EXTREMITIES: 2+ pulses, warm, well-perfused, no edema. NEUROLOGICAL: Cranial nerves II through XII grossly intact. Normal speech, gait not observed. PSYCH: Normal mood, normal affect. SKIN: Warm, dry, normal turgor, no rashes or lesions noted Laboratory Results - last 24 hr 01/31/17 02/01/17 02/01/17 07:00 07:00 07:00 WBC 8.5 RBC 3.55 L Hgb 10.9 Hct 32.8 MCV 92.4 MCH 30.7 MCHC 33.2 RDW 16.6 H Plt Count 302 D MPV 8.6 Neutrophils % 75.6 Lymphocytes % 12.2 Monocytes % 9.9 Eosinophils % 2.3 Basophils % 0.0 PT with INR 35.8 H INR 3.27 H Sodium 138 Potassium 3.9 Chloride 109 H Carbon Dioxide 21 L Anion Gap 8 BUN 25 H Creatinine 1.3 Random Glucose 126 H Calcium 8.0 L Phosphorus 2.5 D Magnesium 1.9 02/01/17 07:00 WBC RBC Hgb Hct MCV MCH MCHC RDW Plt Count MPV Neutrophils % Lymphocytes % Monocytes % Eosinophils % Basophils % PT with INR INR Sodium 139 Potassium 4.0 Chloride 109 H Carbon Dioxide 22 Anion Gap 8 BUN 19 H D Creatinine 1.1 Random Glucose 120 H Calcium 8.4 Phosphorus 3.0 Magnesium 1.8 Active Medications Generic Name Dose Route Start Last Admin Trade Name Freq PRN Reason Stop Dose Admin Acetaminophen 650 mg 01/28/17 12:11 01/30/17 06:26 Tylenol - PO 650 mg Q6H PRN Administration FEVER OR PAIN Atenolol 50 mg 01/28/17 14:59 01/31/17 09:15 Tenormin - PO 50 mg DAILY ESTRELLA Administration Atorvastatin Calcium 10 mg 01/28/17 22:00 01/31/17 22:33 Lipitor - PO 10 mg HS ESTRELLA Administration Calcium Carbonate 500 mg 01/29/17 10:00 01/31/17 09:15 Os-Subhash 500mg - PO 500 mg DAILY ESTRELLA Administration Cholecalciferol 5,000 unit 01/29/17 10:00 01/31/17 09:15 Vitamin D3 - PO 5,000 unit DAILY ESTRELLA Administration Folic Acid 1 mg 01/29/17 10:00 01/31/17 09:15 Folic Acid - PO 1 mg DAILY ESTRELLA Administration Cefazolin Sodium 1 gm in 50 mls @ 100 mls/hr 01/31/17 10:00 02/01/17 01:17 Ancef 1 Gm Premixed Ivpb - IVPB 100 mls/hr Q8H-IV ESTRELLA Administration Ondansetron HCl 4 mg 01/28/17 12:18 Zofran Injection IVPUSH Q6H PRN NAUSEA Oseltamivir Phosphate 30 mg 01/30/17 22:00 01/31/17 22:33 Tamiflu - PO 02/02/17 10:01 30 mg BID ESTRELLA Administration Pantoprazole Sodium 40 mg 01/29/17 10:00 01/31/17 09:15 Protonix - PO 40 mg DAILY ESTRELLA Administration Potassium Chloride 10 meq 01/28/17 22:00 01/31/17 22:33 K-Dur - PO 10 meq BID ESTRELLA Administration Tramadol HCl 50 mg 01/28/17 12:33 Ultram - PO Q6H PRN PAIN ASSESSMENT/PLAN:
--- NOTE | 2017-02-01 09:34 | PN ---
Progress Note, Physician History of Present Illness: Awake, alert No complaints No dysuria No c/o fever/ chills Temps down WBC WNL BC, urine c/s E coli - Current Medication List Current Medications: Active Medications Acetaminophen (Tylenol -) 650 mg PO Q6H PRN PRN Reason: FEVER OR PAIN Last Admin: 01/30/17 06:26 Dose: 650 mg Atenolol (Tenormin -) 50 mg PO DAILY [facility] Last Admin: 01/31/17 09:15 Dose: 50 mg Atorvastatin Calcium (Lipitor -) 10 mg PO HS [facility] Last Admin: 01/31/17 22:33 Dose: 10 mg Calcium Carbonate (Os-Subhash 500mg -) 500 mg PO DAILY [facility] Last Admin: 01/31/17 09:15 Dose: 500 mg Cholecalciferol (Vitamin D3 -) 5,000 unit PO DAILY [facility] Last Admin: 01/31/17 09:15 Dose: 5,000 unit Folic Acid (Folic Acid -) 1 mg PO DAILY [facility] Last Admin: 01/31/17 09:15 Dose: 1 mg Cefazolin Sodium (Ancef 1 Gm Premixed Ivpb -) 1 gm in 50 mls @ 100 mls/hr IVPB Q8H-IV ESTRELLA Last Admin: 02/01/17 01:17 Dose: 100 mls/hr Ondansetron HCl (Zofran Injection) 4 mg IVPUSH Q6H PRN PRN Reason: NAUSEA Oseltamivir Phosphate (Tamiflu -) 30 mg PO BID [facility] Stop: 02/02/17 10:01 Last Admin: 01/31/17 22:33 Dose: 30 mg Pantoprazole Sodium (Protonix -) 40 mg PO DAILY [facility] Last Admin: 01/31/17 09:15 Dose: 40 mg Potassium Chloride (K-Dur -) 10 meq PO BID [facility] Last Admin: 01/31/17 22:33 Dose: 10 meq Tramadol HCl (Ultram -) 50 mg PO Q6H PRN PRN Reason: PAIN - Objective Vital Signs: Vital Signs Temperature 98.5 F 02/01/17 06:40 Pulse Rate 80 02/01/17 06:40 Respiratory Rate 18 02/01/17 07:54 Blood Pressure 146/70 02/01/17 06:40 O2 Sat by Pulse Oximetry (%) 95 02/01/17 07:54 Constitutional: Yes: No Distress Eyes: Yes: Conjunctiva Clear Cardiovascular: Yes: Regular Rate and Rhythm, S1, S2 Respiratory: Yes: CTA Bilaterally Gastrointestinal: Yes: Normal Bowel Sounds, Soft. No: Tenderness Edema: No Labs: CBC, BMP 02/01/17 07:00 02/01/17 07:00 INR, PTT INR 3.27 (0.82-1.09) H 02/01/17 07:00 Assessment/Plan E. coli bacteremia/ sepsis, source UTI/ sepsis secondary to UTI Acute influenza by history Coagulopathy Azotemia improved Hx RA on MTX Continue cefazolin 1gm q8h Check renal sono- R/O hydronephrosis,perinephric abscess If negative substitute po levaquin 500mg qd x 10d
[2017-02-01] MEDS: POTASSIUM CHLORIDE TABS 10 MEQ TABLET.ER (FP) PO SCH (10:07)
[2017-02-01] MEDS: FOLIC ACID 1 MG TABLET (FP) PO SCH (10:07)
[2017-02-01] MEDS: OSELTAMIVIR PHOSPHATE 30 MG CAPSULE PO SCH (10:08)
[2017-02-01] MEDS: ATENOLOL 25 MG TABLET (FP) PO SCH (10:08)
[2017-02-01] MEDS: CHOLECALCIFEROL (VITAMIN D3) 1,000 UNIT TABLET (FP) PO SCH (10:08)
[2017-02-01] MEDS: CALCIUM (OYSTER SHELL) 500 MG TABLET (FP) PO SCH (10:08)
[2017-02-01] MEDS: PANTOPRAZOLE 40 MG TABLET (FP) PO SCH (10:08)
--- NOTE | 2017-02-01 13:32 | DS ---
Physical Exam: SUBJECTIVE: Patient seen and examined, patient reports feeling better, denies any chest pain or shortness of breath. eager to go home. OBJECTIVE:This is an 86 year old female with history of atrial fibrillation (on Coumadin), UGIB, and RA brought in by ambulance to the ED, accompanied by her daughter, complaining of fevers, chills, weakness, and malaise for four days. She saw her PCP on and was diagnosed with influenza by viral swab. She was placed on Tamiflu, but did not improve. She has not been eating or drinking at all. She denies chest pain or shortness of breath. She complains of some generalized abdominal pain, several episodes of non-bloody diarrhea, and headaches. ER course was notable for: (1) Temp 103.4 (2) P 121, irregular (3) INR 4.97 (4) BUN/Cr 38/1.4 (22/1.0 on prior visit in November) (5) CXR wet read: no infiltrate Vital Signs Period Temp Pulse Resp BP Sys/Alonso Pulse Ox Last 24 Hr 98.0 F-98.5 F 80-98 17-18 125-146/70-75 95-97 PHYSICAL EXAM GENERAL: The patient is awake, alert, and fully oriented, in no acute distress. HEAD: Normal with no signs of trauma. EYES: PERRL, extraocular movements intact, sclera anicteric, conjunctiva clear. No ptosis. ENT: Ears normal, nares patent, oropharynx clear without exudates, moist mucous membranes. NECK: Trachea midline, full range of motion, supple. LUNGS: Breath sounds equal, clear to auscultation bilaterally, no wheezes, no crackles, no accessory muscle use. HEART: Regular rate and rhythm, S1, S2 without murmur, rub or gallop. ABDOMEN: Soft, nontender, nondistended, normoactive bowel sounds, no guarding, no rebound, no hepatosplenomegaly, no masses. EXTREMITIES: 2+ pulses, warm, well-perfused, no edema. NEUROLOGICAL: Cranial nerves II through XII grossly intact. Normal speech, gait not observed. PSYCH: Normal mood, normal affect. SKIN: Warm, dry, normal turgor, no rashes or lesions noted LABS Laboratory Results - last 24 hr 02/01/17 02/01/1717 07:00 07:00 07:00 WBC 8.5 RBC 3.55 L Hgb 10.9 Hct 32.8 MCV 92.4 MCH 30.7 MCHC 33.2 RDW 16.6 H Plt Count 302 D MPV 8.6 Neutrophils % 75.6 Lymphocytes % 12.2 Monocytes % 9.9 Eosinophils % 2.3 Basophils % 0.0 PT with INR 35.8 H INR 3.27 H Sodium 139 Potassium 4.0 Chloride 109 H Carbon Dioxide 22 Anion Gap 8 BUN 19 H D Creatinine 1.1 Random Glucose 120 H Calcium 8.4 Phosphorus 3.0 Magnesium 1.8 Microbiology 01/29/17 07:42 Blood - Peripheral Venous Blood Culture - Final NO GROWTH AFTER 5 DAYS INCUBATION 01/29/17 07:32 Blood - Peripheral Venous Blood Culture - Final NO GROWTH AFTER 5 DAYS INCUBATION 01/28/17 11:00 Blood - Peripheral Venous Blood Culture - Final NO GROWTH AFTER 5 DAYS INCUBATION 01/28/17 11:22 Blood - Peripheral Venous Blood Culture - Final Escherichia Coli 01/28/17 12:30 Urine - Urine Clean Catch Urine Culture - Final Escherichia Coli HOSPITAL COURSE: Patient is a 87 y/o female that was admitted from the emergency department for sepsis secondary to influenza, she was placed on continue droplet isolation and tamiflu. patient was noted to have ecoli bacteremia, likely secondary to source, and zosyn was given throughout admission. echo 55-60%, lv wnl, moderate aortic stenosis. PAUL Vogel consulted and followed patient throughout admissio. Patient has a past medical history of afib, rate controlled, patient was noted to be suprathereuptic and inr was held. coumadin was resumed when inr normalized at the patient's home dose. patient home regimen of Coumadin sunday and sunday 2.5mg then 5mg coumadin throughout the week. Patient has a past medical history of rheumotoid arthritis. methotrexate held in the setting of sepsis. patient was noted to have acute UTI, urine culture +ecoli treated with zosyn . Date of Admission:01/28/17 Date of Discharge: 02/01/17 Minutes to complete discharge: 45 Discharge Summary Reason For Visit: DEHYDRATION, INFLUENZA & FEVER Current Active Problems Atrial fibrillation with RVR (Acute) Dehydration (Acute) Sepsis (Acute) Condition: Improved - Instructions Diet, Activity, Other Instructions: YOU WERE ADMITTED TO THE HOSPITAL FOR SEPSIS DUE TO A URINARY TRACT INFECTION AND INFLUENZA - HOLD YOUR EVENING DOSE OF COUMADIN TONIGHT, YOU CAN RESUME YOUR COUMADIN TOMORROW, YOUR SUNDAY DOSE, PLEASE REPEAT YOUR INR ON 02/05/17 - CONTINUE LEVAQUIN DAILY FOR THE NEXT 10 DAYS - PLEASE CONTINUE ALL MEDICATION DAILY - PLEASE FOLLOW UP WITH YOUR PCP DR MARQUEZ WITHIN 7 DAYS - IF ANY NEW OR PERSISTENT SYMPTOMS DEVELOP PLEASE RETURN TO THE EMERGENCY DEPARTMENT Referrals: Cali Marquez MD [Staff Physician] - Disposition: VNS/HOME HEALTH CARE - Home Medications Comprehensive Discharge Medication List: Ambulatory Orders Calcium (Oyster Shell) [Os-Subhash 500MG -] 500 mg PO DAILY 10/25/13 Cholecalciferol (Vitamin D3) [Vitamin D3] 5,000 unit PO DAILY 10/25/13 Folic Acid - 1 mg PO DAILY 10/25/13 Methotrexate [Mexate -] 20 mg PO Q7D 10/25/13 Pantoprazole Sodium [Protonix] 40 mg PO DAILY 10/25/13 Simvastatin [Zocor -] 20 mg PO HS 10/25/13 Warfarin Na [Coumadin -] 2.5 mg PO DAILY 07/28/14 Atenolol [Tenormin] 50 mg PO DAILY 11/14/16 Acetaminophen [Tylenol .Regular Strength -] 650 mg PO Q4H PRN #0 tablet Tramadol HCl [Ultram -] 50 mg PO Q6H PRN #20 tablet MDD 4 11/17/16 Warfarin Na [Coumadin -] 5 mg PO DAILY@1800 tablet 11/17/16 Potassium Chloride [K-Dur -] 10 meq PO BID 01/28/17 This patient is new to me today: No Emergency Visit: Yes ED Registration Date: 01/28/17 Care time: The patient presented to the Emergency Department on the above date and was hospitalized for further evaluation of their emergent condition. Critical Care patient: No - Discharge Referral Referred to [facility] Med P.C.: No
== END 2017-02-01 14:45 | disposition home health service (06) | DRG 872 ==
LOC: FER 09:51 → JERBED 13:22 → UNDOADMIN 13:22 → FM/S 14:26
PROVIDERS: ADMIT Internal Medicine; ATTEND Nurse Practitioner Family
DX: A41.51 Sepsis due to Escherichia coli [E. coli] (principal); N39.0 Urinary tract infection, site not specified; I48.91 Unspecified atrial fibrillation; Z87.891 Personal history of nicotine dependence; E86.0 Dehydration; Z79.01 Long term (current) use of anticoagulants; J11.1 Influenza due to unidentified influenza virus with other respiratory manifestations; R79.89 Other specified abnormal findings of blood chemistry; M06.9 Rheumatoid arthritis, unspecified; B96.20 Unspecified Escherichia coli [E. coli] as the cause of diseases classified elsewhere
CPT/HCPCS: 36415; 71010-TC; 76775-TC; 80048; 80053; 81003; 81015; 83605; 83735; 84100; 85025; 85610; 87040; 87086; 87186; 93005; 93306-TC; 97116-GP; 97162-GP; 99284-25

== ENCOUNTER 2017-02-05 02:36 | Emergency (ER) | payer OTHER, MEDICARE ==
[2017-02-05 02:44] VITALS: BMI 26.6
--- NOTE | 2017-02-05 03:09 | PDOC ---
History of Present Illness - General Chief Complaint: Respiratory Stated Complaint: SHORTNESS OF BREATH Time Seen by Provider: 02/05/17 02:47 - History of Present Illness Initial Comments: 02/05/17 03:09 87 yo F with h/o Afib on Coumadin presents with SOB. Patient reports waking up at 0130 with SOB and left sided chest pressure/tightness this AM. Reports recent hospital admission with discharge this past for sepsis 2/2 UTI. Has had increased leg swelling and Pitts since discharge on . Denies N/V, fevers/chills, palpitations, dizziness, abdominal, or urinary complaints. Denies hemoptysis, recent trauma or surgery within past 6 weeks. No h/o DVT/PE, ND, Stent placement, or CABG. Past History - Past Medical History Allergies/Adverse Reactions: Allergies Allergy/AdvReac Type Severity Reaction Status Date / Time No Known Allergies Allergy Verified 01/28/17 09:52 Home Medications: Ambulatory Orders Calcium (Oyster Shell) [Os-Subhash 500MG -] 500 mg PO DAILY 10/25/13 Cholecalciferol (Vitamin D3) [Vitamin D3] 5,000 unit PO DAILY 10/25/13 Folic Acid - 1 mg PO DAILY 10/25/13 Methotrexate [Mexate -] 20 mg PO Q7D 10/25/13 Pantoprazole Sodium [Protonix] 40 mg PO DAILY 10/25/13 Simvastatin [Zocor -] 20 mg PO HS 10/25/13 Warfarin Na [Coumadin -] 2.5 mg PO ASDIR 07/28/14 Atenolol [Tenormin] 50 mg PO DAILY 11/14/16 Acetaminophen [Tylenol .Regular Strength -] 650 mg PO Q4H PRN #0 tablet Tramadol HCl [Ultram -] 50 mg PO Q6H PRN #20 tablet MDD 4 11/17/16 Warfarin Na [Coumadin -] 5 mg PO DAILY@1800 tablet 11/17/16 Potassium Chloride [K-Dur -] 10 meq PO BID 01/28/17 Levofloxacin [Levaquin -] 500 mg PO DAILY #10 tablet 02/01/17 Anemia: Yes Asthma: No Cancer: No Cardiac Disorders: Yes (A-FIB) CVA: No COPD: No CHF: No DVT: No Dementia: No Diabetes: No GI Disorders: Yes (upper gi bleed ) Disorders: No HTN: Yes Hypercholesterolemia: Yes Liver Disease: No Seizures: No Thyroid Disease: No - Surgical History Abdominal Surgery: No Appendectomy: Yes Cardiac Surgery: No Cholecystectomy: No Lung Surgery: No Neurologic Surgery: No Orthopedic Surgery: No - Immunization History Td Vaccination: Yes Immunization Up to Date: (THINKS 2 YEARS) - Suicide/Smoking/Psychosocial Hx Smoking Status: No Smoking History: Former smoker Have you smoked in the past 12 months: No Number of Cigarettes Smoked Daily: 0 If you are a former smoker, when did you quit?: 30 years ago Information on smoking cessation initiated: No 'Breaking Loose' booklet given: 11/26/11 Hx Alcohol Use: No Drug/Substance Use Hx: No Substance Use Type: None Hx Substance Use Treatment: No Review of Systems - Review of Systems Comments:: 02/05/17 03:28 GENERAL/CONSTITUTIONAL: No fever or chills. No weakness. HEAD, EYES, EARS, NOSE AND THROAT: No change in vision. No ear pain or discharge. No sore throat.- CARDIOVASCULAR: No chest pain or shortness of breath RESPIRATORY: No cough, wheezing, or hemoptysis. GASTROINTESTINAL: No nausea, vomiting, diarrhea or constipation. GENITOURINARY: No dysuria, frequency, or change in urination. MUSCULOSKELETAL: No joint or muscle swelling or pain. No neck or back pain. SKIN: No rash NEUROLOGIC: No headache, vertigo, loss of consciousness, or change in strength/ sensation. ENDOCRINE: No increased thirst. No abnormal weight change HEMATOLOGIC/LYMPHATIC: No anemia, easy bleeding, or history of blood clots. ALLERGIC/IMMUNOLOGIC: No hives or skin allergy. *Physical Exam - Vital Signs Last Vital Signs Temp Pulse Resp BP Pulse Ox 105 H 20 152/115 96 02/05/17 02:42 02/05/17 02:42 02/05/17 02:42 02/05/17 02:42 - Physical Exam Comments: 02/05/17 03:50 GENERAL: Awake, alert, and fully oriented, in no acute distress HEAD: No signs of trauma, normocephalic, atraumatic EYES: PERRLA, EOMI, sclera anicteric, conjunctiva clear ENT: Auricles normal inspection, hearing grossly normal, nares patent, oropharynx clear without exudates. Moist mucosa NECK: Normal ROM, supple, no lymphadenopathy, JVD, or masses LUNGS: No distress, speaks full sentences, coarse lung sound bilaterally HEART: Irregular rate and rhythm, normal S1 and S2, no murmurs, rubs or gallops , peripheral pulses normal and equal bilaterally. ABDOMEN: Soft, nontender, normoactive bowel sounds. No guarding, no rebound. No masses EXTREMITIES : 2 + Pitting edema in BL LE. Normal inspection, Normal range of motion. No clubbing or cyanosis. SKIN: Warm, Dry, normal turgor, no rashes or lesions noted. Heart Score/ECG Review - History History: Slightly suspicious - Electrocardiogram EKG: Non specific repolarization disturbance - Risk Factors Risk Factors Heart Score: Yes Hx Hypertension, Yes Positive family hx of cardiac disease Based on the list above the patient has:: 1-2 risk factors - Troponin Troponin: </= normal limit - ECG Impressions Normal ECG: No ED Treatment Course - LABORATORY CBC & Chemistry Diagram: 02/05/17 03:15 02/05/17 03:15 Medical Decision Making - Medical Decision Making 02/05/17 03:51 87 yo F with h/o Afib on Coumadin presents with SOB and left sided chest pressure/tightness 1 hour [employer] in setting of recent hospital admission with d/c for sepsis 2/2 UTI ( 02/01) . Has had increased leg swelling and Pitts since discharge on . Denies N/V, fevers/chills, palpitations, dizziness, abdominal, or urinary complaints. Physical exam reveals BL LE 2 + pitting edema , tachycardia 100's. Denies hemoptysis, recent trauma or surgery within past 6 weeks. No h/o DVT/PE, ND, Stent placement, or CABG. Low risk wells score for PE. ACS/ND r/o. ED Course: 02/05/17 03:55 CBC, CMP, Cardiac Profile, BNP, Trop UA, EKG, CXR 02/05/17 03:56 CBC: Unremarkable INR: 3.13 02/05/17 04:50 BNP: 14,250 Trop: Neg 02/05/17 04:50 Cr 1.1 (Baseline 1.3) 02/05/17 04:55 EKG: Afib with RVR. with no evidence of HAYDEN, or STD. CXR: Increased BL perihilar vasuclar markings. Retrocardiac opacity most likely indicative of atelectasis Patient is stable and ready for discharge. Advised to follow up with cardiology. *DC/Admit/Observation/Transfer Diagnosis at time of Disposition: Atrial fibrillation with RVR, SOB (shortness of breath) - Discharge Dispostion Disposition: HOME Condition at time of disposition: Stable Admit: No - Referrals - Patient Instructions Additional Instructions: Please return to the emergency department with new or worsening symptoms or complaints. Please follow up with your ophthalmic medical technician within the next week. - Post Discharge Activity - Attestations Physician Attestion: 02/05/17 05:31 I attest to the information provided in this note.
[2017-02-05 03:36] LABS: BASOPHIL 0.6 % (0-2.0); EOSINOPHIL 1.3 % (0-4.5); MCH 30.5 pg (25.7-33.7); MEAN CELL VOLUME 92.3 fl (80-96); MEAN PLT VOLUME 8.2 fl (7.5-11.1); NEUTROPHILS 80.5 % (42.8-82.8); PLATELET COUNT 425 K/MM3 (134-434); RDW 17.6 % (11.6-15.6); WHITE BLOOD COUNT 7.1 K/mm3 (4.0-10.0)
[2017-02-05 03:47] LABS: INR 3.13 (0.82-1.09); PROTHROMBIN TIME (PATIENT) 35.4 SEC (9.98-11.88)
[2017-02-05 04:02] LABS: ALBUMIN 2.7 g/dl (3.4-5.0); ANION GAP 10 (8-16); CALCIUM 8.7 mg/dL (8.5-10.1); CO2 23 mmol/L (21-32); CREATININE 1.1 mg/dL (0.55-1.02); GLUCOSE,RANDOM 113 mg/dL (74-106); SGOT/AST 30 U/L (15-37); SGPT/ALT 48 U/L (12-78)
[2017-02-05 04:06] LABS: ALK PHOS 116 U/L (45-117); BILIRUBIN,TOTAL 0.6 mg/dL (0.2-1.0); CPK 50 IU/L (26-192); TOT PROT 5.9 g/dl (6.4-8.2); TROPONIN I < 0.02 ng/ml (0.00-0.05)
[2017-02-05 05:48] VITALS: TEMP 98.4
[2017-02-05 06:19] VITALS: BP 131/65; PULSE 113
--- NOTE | 2017-02-05 13:58 | EKG ---
Test Reason : Blood Pressure : / mmHG Vent. Rate : 113 BPM Atrial Rate : 133 BPM P-R Int : 000 ms QRS Dur : 076 ms QT Int : 348 ms P-R-T Axes : 000 025 005 degrees QTc Int : 477 ms ATRIAL FIBRILLATION WITH RAPID VENTRICULAR RESPONSE ABNORMAL ECG WHEN COMPARED WITH ECG OF 28-JAN-2017 10:35, T WAVE VARIATION Confirmed by KIP ARTEAGA MD ([id number]) on 02/05/2017 1:58:38 PM Referred By: Confirmed By:KIP ARTEAGA MD
== END 2017-02-05 06:19 | disposition home or self-care (01) ==
LOC: JER 02:36
DX: I48.91 Unspecified atrial fibrillation (principal); Z79.01 Long term (current) use of anticoagulants; I10 Essential (primary) hypertension; E78.00 Pure hypercholesterolemia, unspecified
CPT/HCPCS: 36415; 71010-TC; 80053; 82550; 83605; 83880; 84484; 85025; 85610; 87040; 93005; 93010; 99283-25